=== PATIENT | female | born 1995 | race Caucasian/White ===

== ENCOUNTER 2018-10-02 18:14 | Emergency (ER) | payer BC ==
--- OUTSIDE RECORDS SUMMARY | 2018-10-02 18:18 | XMS REPORT | Continuity of Care Document ---
:1995 Author Organization [facility] Care Team Providers Name Role Phone AYE Hardy Sharrone Unavailable Unavailable Insurance Providers Payer name Policy type / Policy ID Covered democrat ID Policy Aguilar Coverage type CIGNA HMO PRIMARY CIGNA PPO PRIMARY [id number] CIGNA HEALTHCARE (PPO) Encounters Encounter Performer Location Date Lab Report Milka Hardy PA-C [facility] [place] [facility] Oct 15, 2014 Practice Problems Problem Effective Dates Problem Status SCOLIOSIS May 31, 2012 Active HEALTHY ADOLESCENT May 31, 2012 Active KNEE PAIN Jul 06, 2012 Inactive SHOULDER PAIN Jul 06, 2012 Active COSTOCHONDRITIS, ACUTE Jun 27, 2014 Active FATIGUE Jun 27, 2014 Active ANEMIA Jul 12, 2014 Active SCREENING EXAMINATION FOR PULMONARY TUBERCULOSIS Jul 22, 2014 Active NEED FOR PROPHYLACTIC VACCINATION AND INOCULATION Aug 23, 2014 Active AGAINST VARICELLA MIGRAINE Oct 15, 2014 Active Procedures Date Description Comments Jul 06, 2012 smoking status never smoker Jun 27, 2014 smoking status Never smoker Jul 12, 2014 smoking status Never smoker Oct 15, 2014 smoking status Never smoker Medications Medication Instructions Start Date Status IBUPROFEN 800 MG TABS take 1 po TID pc for 5 days Jun 27, 2014 Inactive TOPIRAMATE ER 25 MG CS24 take one a bedtime Jun 27, 2014 Active HYDROCODONE-ACETAMINOPHEN 5-325 take 1 po every 6 hours as Jun 27, 2014 Inactive MG TABS needed Immunizations Vaccine Date Status hepatitis B vaccine #1 given 1995 completed hepatitis B vaccine #2 given 1995 completed hepatitis B vaccine #3 Jul 17, 1996 completed DPT immunization #1 1995 completed DPT immunization #2 1995 completed DPT immunization #3 Jan 05, 1996 completed DPT immunization #4 Dec 27, 1996 completed DPT immunization #5 Apr 21, 2000 completed Hemophilus influenza B immunization #1 1995 completed Hemophilus influenza B immunization #2 1995 completed Hemophilus influenza B immunization #3 1995 completed Hemophilus influenza B immunization #4 Jun 04, 1998 completed oral polio vaccine (OPV) #1 1995 completed oral polio vaccine (OPV) #2 1995 completed oral polio vaccine (OPV) #3 Jan 05, 1996 completed oral polio vaccine (OPV) #4 Oct 22, 1999 completed MMR (measles, mumps, rubella) virus immunization #1 Jan 04, 1997 completed MMR (measles, mumps, rubella) virus immunization #2 Oct 22, 1999 completed dT (Diphtheria and Tetanus) booster given Nov 27, 2009 completed influenza immunization (Flu Vax) has been administered Jun 24, 2010 completed MPSV4 (meningococcal polysaccharide vaccination) Nov 27, 2009 completed hepatitis A immunization #1 Nov 30, 2006 completed hepatitis A immunization #2 Sep 03, 2007 completed TB-PPD (tuberculin purified protein derivative), intradermal May 30, 2012 completed administration Vital Signs Date Description Test Result May 31, 2012 height E&M - 8302-2 HEIGHT 64 in May 31, 2012 weight E&M - 3141-9 WEIGHT 118.2 lb May 31, 2012 temperature E&M TEMPERATURE 97.6 deg f May 31, 2012 pulse rate E&M - 8867-4 PULSE RATE 67 /min May 31, 2012 blood pressure, systolic - 8480-6 BP SYSTOLIC 115 mm Hg May 31, 2012 blood pressure, diastolic - 8462-4 BP DIASTOLIC 65 mm Hg Jul 06, 2012 weight E&M - 3141-9 WEIGHT 126..2 lb Jul 06, 2012 temperature E&M TEMPERATURE 98.2 deg f Jul 06, 2012 respiratory rate E&M - 9279-1 RESP RATE 20 /min Jul 06, 2012 pulse rate E&M - 8867-4 PULSE RATE 80 /min Jul 06, 2012 blood pressure, systolic - 8480-6 BP SYSTOLIC 100 mm Hg Jul 06, 2012 blood pressure, diastolic - 8462-4 BP DIASTOLIC 60 mm Hg Jul 12, 2012 weight E&M - 3141-9 WEIGHT 126.25 lb Jul 12, 2012 temperature E&M TEMPERATURE 97.9 deg f Jul 12, 2012 pulse rate E&M - 8867-4 PULSE RATE 72 /min Jul 12, 2012 blood pressure, systolic - 8480-6 BP SYSTOLIC 110 mm Hg Jul 12, 2012 blood pressure, diastolic - 8462-4 BP DIASTOLIC 68 mm Hg Jul 12, 2012 respiratory rate E&M - 9279-1 RESP RATE 20 /min Aug 21, 2012 weight E&M - 3141-9 WEIGHT 123 lb Aug 21, 2012 temperature E&M TEMPERATURE 98.5 deg f Aug 21, 2012 respiratory rate E&M - 9279-1 RESP RATE 16 /min Aug 21, 2012 blood pressure, systolic - 8480-6 BP SYSTOLIC 116 mm Hg Aug 21, 2012 blood pressure, diastolic - 8462-4 BP DIASTOLIC 66 mm Hg Jun 27, 2014 height E&M - 8302-2 HEIGHT 63 in Jun 27, 2014 weight E&M - 3141-9 WEIGHT 125 lb Jun 27, 2014 blood pressure, systolic - 8480-6 BP SYSTOLIC 110 mm Hg Jun 27, 2014 blood pressure, diastolic - 8462-4 BP DIASTOLIC 70 mm Hg Jun 27, 2014 temperature E&M TEMPERATURE 98.7 deg f Jun 27, 2014 pulse rate E&M - 8867-4 PULSE RATE 78 /min Jul 12, 2014 weight Benny&Viviana - 3141-9 WEIGHT 125 lb Jul 12, 2014 height E&M - 8302-2 HEIGHT 63 in Jul 12, 2014 temperature E&M TEMPERATURE 98.2 deg f Jul 12, 2014 pulse rate E&M - 8867-4 PULSE RATE 80 /min Jul 12, 2014 respiratory rate E&M - 9279-1 RESP RATE 18 /min Jul 12, 2014 blood pressure, systolic - 8480-6 BP SYSTOLIC 112 mm Hg Jul 12, 2014 blood pressure, diastolic - 8462-4 BP DIASTOLIC 68 mm Hg Jul 22, 2014 height E&M - 8302-2 HEIGHT 63 in Jul 22, 2014 weight Benny&Viviana - Madeleine1-9 WEIGHT 124 lb Jul 22, 2014 temperature E&M TEMPERATURE 97.9 deg f Jul 22, 2014 pulse rate E&M - 8867-4 PULSE RATE 68 /min Jul 22, 2014 blood pressure, systolic - 8480-6 BP SYSTOLIC 110 mm Hg Jul 22, 2014 blood pressure, diastolic - 8462-4 BP DIASTOLIC 70 mm Hg Aug 23, 2014 height E&M - 8302-2 HEIGHT 63 in Aug 23, 2014 weight E&M - 3141-9 WEIGHT 122 lb Aug 23, 2014 temperature E&M TEMPERATURE 98.7 deg f Aug 23, 2014 pulse rate E&M - 8867-4 PULSE RATE 74 /min Aug 23, 2014 blood pressure, systolic - 8480-6 BP SYSTOLIC 114 mm Hg Aug 23, 2014 blood pressure, diastolic - 8462-4 BP DIASTOLIC 70 mm Hg Oct 15, 2014 height E&M - 8302-2 HEIGHT 63 in Oct 15, 2014 weight E&M - 3141-9 WEIGHT 134 lb Oct 15, 2014 blood pressure, systolic - 8480-6 BP SYSTOLIC 103 mm Hg Oct 15, 2014 blood pressure, diastolic - 8462-4 BP DIASTOLIC 68 mm Hg Oct 15, 2014 temperature E&M TEMPERATURE 98.2 deg f Oct 15, 2014 pulse rate E&M - 8867-4 PULSE RATE 71 /min Oct 15, 2014 respiratory rate E&M - 9279-1 RESP RATE 10 /min Results Date Description Test Name Value Reference Interpretation Status Jun 27, 2014 hemoglobin, blood HGB 11.7 g/dL 12.0-15.0 Low Jun 27, 2014 hematocrit, blood HCT 33.6 % 35.0-43.8 Low Oct 15, 2014 hemoglobin, blood HGB 13.1 g/dL 12.0-15.0 Oct 15, 2014 hematocrit, blood HCT 38.6 % 35.0-43.8 Jun 27, 2014 thyroid stimulating TSH 2.48 uIU/mL 0.34-5.60 hormone, serum Oct 15, 2014 iron, serum IRON 57 ug/dL 20-144 Oct 15, 2014 iron binding TIBC 419 ug/dL 250-478 capacity, total
--- OUTSIDE RECORDS SUMMARY | 2018-10-02 18:18 | XMS REPORT | Continuity of Care Document ---
:1995 Author Organization [facility] Care Team Providers Name Role Phone AYE Hardy Sharrone Unavailable Unavailable Insurance Providers Payer name Policy type / Policy ID Covered republican ID Policy Aguilar Coverage type CIGNA HMO PRIMARY CIGNA PPO PRIMARY [id number] CIGNA HEALTHCARE (PPO) Encounters Encounter Performer Location Date Lab Report Milka Hardy PA-C [facility] - Jun 27, 2014 [place] Problems Problem Effective Dates Problem Status SCOLIOSIS May 31, 2012 Active HEALTHY ADOLESCENT May 31, 2012 Active KNEE PAIN Jul 06, 2012 Inactive SHOULDER PAIN Jul 06, 2012 Active COSTOCHONDRITIS, ACUTE Jun 27, 2014 Active FATIGUE Jun 27, 2014 Active Procedures Date Description Comments Jul 06, 2012 smoking status never smoker Jun 27, 2014 smoking status Never smoker Medications Medication Instructions Start Date Status HYDROCODONE-ACETAMINOPHEN 5-325 take 1 po every 6 hours as needed Jun 27, 2014 Active MG TABS IBUPROFEN 800 MG TABS take 1 po TID pc for 5 days Jun 27, 2014 Active TOPIRAMATE ER 25 MG CS24 take one a bedtime Jun 27, 2014 Active Immunizations Vaccine Date Status hepatitis B vaccine [...] HEIGHT 64 in May 31, 2012 weight Benny&Viviana - 3141-9 WEIGHT 118.2 lb May 31, 2012 temperature E&M TEMPERATURE 97.6 deg f May 31, 2012 pulse rate E&M - 8867-4 PULSE RATE 67 /min May 31, 2012 blood pressure, systolic - 8480-6 BP SYSTOLIC 115 mm Hg May 31, 2012 blood pressure, diastolic - 8462-4 BP DIASTOLIC 65 mm Hg Jul 06, 2012 weight Benny&Viviana - 3141-9 WEIGHT 126..2 lb Jul 06, [...] 60 mm Hg Jul 12, 2012 weight Benny&Viviana - 3141-9 WEIGHT 126.25 lb Jul 12, [...] RATE 20 /min Aug 21, 2012 weight Benny&Viviana - 3141-9 WEIGHT 123 lb Aug 21, [...] E&M - 8867-4 PULSE RATE 78 /min Results Date Description Test Name Value Reference Interpretation Status Jun 27, 2014 hemoglobin, blood HGB 11.7 g/dL 12.0-15.0 Low Jun 27, 2014 hematocrit, blood HCT 33.6 % 35.0-43.8 Low Jun 27, 2014 thyroid stimulating TSH 2.48 uIU/mL 0.34-5.60 hormone, serum
--- OUTSIDE RECORDS SUMMARY | 2018-10-02 18:18 | XMS REPORT | Continuity of Care Document ---
:1995 Author Organization [facility] Care Team Providers Name Role Phone AYE Hardy Sharrone Unavailable Unavailable Insurance Providers Payer name Policy type / Policy ID Covered libertarian ID Policy Aguilar Coverage type CIGNA HMO PRIMARY CIGNA PPO PRIMARY [id number] CIGNA HEALTHCARE (PPO) Encounters Encounter Performer Location Date Office Visit Milka Hardy PA-C [facility] Jun Practice Problems Problem Effective Dates Problem Status SCOLIOSIS May 31, 2012 Active HEALTHY ADOLESCENT May 31, 2012 Active KNEE PAIN Jul 06, 2012 Inactive SHOULDER PAIN Jul 06, 2012 Active COSTOCHONDRITIS, ACUTE Jun 27, 2014 Active FATIGUE Jun 27, 2014 Active ANEMIA Jul 12, 2014 Active Procedures Date Description Comments Jul 06, 2012 smoking status never smoker Jun 27, 2014 smoking status Never smoker Jul 12, 2014 smoking status Never smoker Medications Medication [...] RATE 78 /min Jul 12, 2014 weight E&M - 3141-9 WEIGHT 125 lb Jul 12, [...] - 8462-4 BP DIASTOLIC 68 mm Hg Results Date Description Test Name Value Reference Interpretation Status Jun 27, 2014 hemoglobin, blood HGB 11.7 g/dL 12.0-15.0 Low Jun 27, 2014 hematocrit, blood HCT 33.6 % 35.0-43.8 Low Jun 27, 2014 thyroid stimulating TSH 2.48 uIU/mL 0.34-5.60 hormone, serum
--- OUTSIDE RECORDS SUMMARY | 2018-10-02 18:18 | XMS REPORT | Summary of Care ---
:1995 Author Organization [facility] Cardiology [facility] Address [address] [address] Encounter HQ Encntr_alias(FIN) [id number] Date(s): 10/25/17 - 10/26/17 [facility] [id number] [place] [address]- [phone] Vital Signs No data available for this section Problem List Condition Effective Dates Status Health Status Informant Anemia1 07/12/14 Active control(Confirmed) < 11/14/15 Resolved Fatigue2 06/27/14 Active Body mass index (BMI) 26.0-26.9, Active adult(Confirmed) Cardiac murmur(Confirmed) Active Migraine3 10/15/14 Active Mild mitral regurgitation(Confirmed) Active Night sweats(Confirmed) Active Overweight(Confirmed) Active Scoliosis deformity of spine4 05/31/12 Active Shoulder pain5 07/06/12 Resolved Insomnia(Confirmed) Active Plantar wart(Confirmed) < 09/24/15 Resolved 1Data migrated from [employer] on 03/15/15.2Data migrated from [employer] on 03/15/15.3Data migrated from [employer] on 03/15/15.4Data migrated from [employer] on 03/15/15.5Data migrated from [employer] on 03/15/15. Allergies, Adverse Reactions, Alerts Substance Reaction Severity Status NKDA Active Medications No data available for this section Results No data available for this section Immunizations Given and Recorded Vaccine Date Status Refusal Reason meningococcal conjugate vaccine1 10/24/14 Given varicella virus vaccine2 08/23/14 Given varicella virus vaccine3 07/22/14 Given Hx influenza vaccine-unspecified4 06/24/10 Given meningococcal polysaccharide vaccine5 11/27/09 Given diphtheria/pertussis, acel/tetanus adult6 11/27/09 Given Hx hepatitis A vaccine7 09/03/07 Given Hx hepatitis A vaccine8 11/30/06 Given Hx diphth/pertussis, acellular/tetanus9 04/21/00 Given Hx diphth/pertussis, acellular/ 12/27/96 Given Hx diphth/pertussis, acellular/ybbshlf15 01/05/96 Given Hx diphth/pertussis, acellular/wtsucig76 95 Given Hx diphth/pertussis, acellular/rvpygcg76 95 Given Hx poliovirus vaccine-onefayztqmp89 10/22/99 Given Hx poliovirus vaccine-owginvknrmv42 01/05/96 Given Hx poliovirus vaccine-dnbezbowngr68 95 Given Hx poliovirus vaccine-zdlignrzpic87 95 Given measles/mumps/rubella virus slbciau32 10/22/99 Given measles/mumps/rubella virus mxzmpap19 01/04/97 Given Hx haemophilus b 06/04/98 Given Hx haemophilus b 95 Given Hx haemophilus b 95 Given Hx haemophilus b ikbcwwt25 95 Given Hx hepatitis B ggwxewa72 07/17/96 Given Hx hepatitis B mqavufj88 95 Given Hx hepatitis B yszooob06 95 Given 1Result Comment: menactra (mcv4p) [phq435]. Migrated from OBS ; Data migrated from [employer] on11/19/2015.2Result Comment: varivax [cvx21]. Migrated from OBS VIS: Varicella: ; Data migrated from [employer] on 2015.3Result Comment: varivax [cvx21]. Migrated from OBS VIS: Varicella: ; Data migrated from [employer] on 11/19/2015.4Result Comment: historical. Migrated from OBS ; Data migrated from [employer] on 2015.5Result Comment: historical. Migrated from OBS ; Data migrated from [employer] on 11/19/2015.6Result Comment: tdap. Migrated from OBS ; Data migrated from [employer] on 11/19/2015.7Result Comment: historical. Migrated from OBS ; Data migrated from [employer] on 11/19/2015.8Result Comment: historical. Migrated from OBS ; Data migrated from [employer] on 2015.9Result Comment: historical. Migrated from OBS ; Data migrated from [employer] on 11/19/2015.10Result Comment: historical. Migrated from OBS ; Data migrated from [employer] on 11/19/2015.11Result Comment: historical. Migrated from OBS ; Data migrated from [employer] on 11/19/2015.12Result Comment: historical. Migrated from OBS ; Data migrated from [employer] on 11/19/2015.13Result Comment: historical. Migrated from OBS ; Data migrated from [employer] on 11/19/2015.14Result Comment: historical. Migrated from OBS ; Data migrated from [employer] on 11/19/2015.15Result Comment: historical. Migrated from OBS ; Data migrated from [employer] on 2015.16Result Comment: historical. Migrated from OBS ; Data migrated from [employer] on 11/19/2015.17Result Comment: historical. Migrated from OBS ; Data migrated from [employer] on 11/19/2015.18Result Comment: historical. Migrated from OBS ; Data migrated from [employer] on 11/19/2015.19Result Comment: historical. Migrated from OBS ; Data migrated from [employer] on 11/19/2015.20Result Comment: historical. Migrated from OBS ; Data migrated from [employer] on 11/19/2015.21Result Comment: historical. Migrated from OBS ; Data migrated from [employer] on 11/19/2015.22Result Comment: historical. Migrated from OBS ; Data migrated from [employer] on 2015.23Result Comment: historical. Migrated from OBS ; Data migrated from [employer] on 11/19/2015.24Result Comment: historical. Migrated from OBS ; Data migrated from [employer] on 11/19/2015.25Result Comment: historical. Migrated from OBS ; Data migrated from [employer] on 11/19/2015.26Result Comment: historical. Migrated from OBS ; Data migrated from [employer] on 11/19/2015. Procedures Procedure Date Related Diagnosis Body Site Status Extraction of wisdom tooth Completed Social History Social History Type Response Employment/School Status: Employed, Student. Work/School description: Student of [employer][1], [place] in [id number], studying human [employer]. 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 Brother is in [place].. Other: Lives with roommates 1 dog, 1 pig.. Smoking Status Never smoker; Exposure to Tobacco Smoke None; Cigarette Smoking Last 365 Days No; Reg Smoking Cessation Counseling No entered on: 10/14/17 Assessment and Plan No data available for this section
--- OUTSIDE RECORDS SUMMARY | 2018-10-02 18:18 | XMS REPORT | Summary of Care ---
:1995 Author Organization [facility] Cardiology [place] Address [address] [place] [address]- Encounter HQ Veronica_awais(FIN) [id number] Date(s): 09/07/17 - 09/07/17 [facility] [place] [address] [place] [address]- [phone] Discharge Disposition: Home or Self Care Attending Physician: Rosa Elena Daigle OPERATIONS CHIEF Vital Signs Most recent to oldest [Reference Range]: 1 Height 160.02 cm (09/07/17 2:57 PM) Blood Pressure [90-140/60-90 mmHg] 105/68 mmHg (09/07/17 2:57 PM) Peripheral Pulse Rate [60-100 bpm] 76 bpm (09/07/17 2:57 PM) Weight 72.045 kg (09/07/17 2:57 PM) Body Mass Index 28.14 m2 (09/07/17 2:57 PM) Problem List Condition Effective Dates Status Health Status Informant Anemia1 07/12/14 Active control(Confirmed) < 11/14/15 Resolved Fatigue2 06/27/14 Active Body mass index (BMI) 26.0-26.9, Active adult(Confirmed) Cardiac murmur(Confirmed) Active Migraine3 10/15/14 Active Mild mitral valve Active prolapse(Confirmed) Mild mitral regurgitation(Confirmed) Active Night sweats(Confirmed) Active Overweight(Confirmed) Active Scoliosis deformity of spine4 05/31/12 Active Shoulder pain5 07/06/12 Resolved Insomnia(Confirmed) Active Plantar wart(Confirmed) < 09/24/15 Resolved 1Data migrated from [employer] on 03/15/15.2Data migrated from [employer] on 03/15/15.3Data migrated from [employer] on 03/15/15.4Data migrated from [employer] on 03/15/15.5Data migrated from [employer] on 03/15/15. Allergies, Adverse Reactions, Alerts Substance Reaction Severity Status NKDA Active Medications No Known Medications Results No data available for this section [...] Hx diphth/pertussis, acellular/tetanus9 04/21/00 Given Hx diphth/pertussis, acellular/ewuybyh06 12/27/96 Given Hx diphth/pertussis, acellular/ 01/05/96 Given Hx diphth/pertussis, acellular/vflecyh26 95 Given Hx diphth/pertussis, acellular/blgomwe03 95 Given Hx poliovirus vaccine-gqmpdjnxnup70 10/22/99 Given Hx poliovirus vaccine- 01/05/96 Given Hx poliovirus vaccine-tdvpeplqcpr33 95 Given Hx poliovirus vaccine-fxaxrtbqobz08 95 Given measles/mumps/rubella virus iuozwwp49 10/22/99 Given measles/mumps/rubella virus ndbdacy76 01/04/97 Given Hx haemophilus b fsguiti26 06/04/98 Given Hx haemophilus b tdameus05 95 Given Hx haemophilus b dqiedmp86 95 Given Hx haemophilus b pdpyiyz41 95 Given Hx hepatitis B rmliaip30 07/17/96 Given Hx hepatitis B guflyhg44 95 Given Hx hepatitis B 95 Given 1Result Comment: menactra (mcv4p) [bhe343]. Migrated from OBS ; Data migrated from [employer] on11/19/2015.2Result Comment: varivax [cvx21]. Migrated from OBS VIS: Varicella: ; Data migrated from [employer] on 2015.3Result Comment: varivax [cvx21]. Migrated from [...] Migrated from OBS ; Data migrated from [email or web address] Centricity on 11/19/2015.24Result Comment: historical. Migrated from OBS ; Data migrated from [email or web address] on 11/19/2015.25Result Comment: historical. Migrated from OBS ; Data migrated from [email or web address] on 11/19/2015.26Result Comment: historical. Migrated from OBS ; Data migrated from [email or web address] on 11/19/2015. Procedures Procedure Date Related Diagnosis Body Site Extraction of wisdom tooth Social History Social History Type Response Employment/School Status: Employed, Student. Work/School description: Student of [employer], [place] in [phone], studying human resources. 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 Brother is in [place].. Other: Lives with roommates 1 dog, 1 pig.. Smoking Status Never smoker; Exposure to Tobacco Smoke None; Cigarette Smoking Last 365 Days No; Reg Smoking Cessation Counseling No Assessment and Plan No data available for this section
--- OUTSIDE RECORDS SUMMARY | 2018-10-02 18:18 | XMS REPORT | Summary of Care ---
:1995 Author Organization [facility] Sleep Medicine [facility] [address] [place] [address]- Encounter HQ Veronica_awais(FIN) [id number] Date(s): 10/06/17 - 10/06/17 [facility] Sleep Medicine [place] [address] [place] [address] [phone] Attending Physician: VISIT, NURSE [facility] Referring Physician: Sosa Galicia RN, MSN, INVESTIGATOR INTERNAL REVENUE-C Vital Signs No data available for this [...] Hx diphth/pertussis, acellular/tetanus9 04/21/00 Given Hx diphth/pertussis, acellular/purvvbm19 12/27/96 Given Hx diphth/pertussis, acellular/goqpsgi05 01/05/96 Given Hx diphth/pertussis, acellular/yrlnulh49 95 Given Hx diphth/pertussis, acellular/bzsddru66 95 Given Hx poliovirus vaccine-soyoxgctraa42 10/22/99 Given Hx poliovirus vaccine-sfszujufqap76 01/05/96 Given Hx poliovirus vaccine-ntboasmgpkc35 95 Given Hx poliovirus vaccine-jrhacxernfi50 95 Given measles/mumps/rubella virus joqhqth74 10/22/99 Given measles/mumps/rubella virus ggeolam04 01/04/97 Given Hx haemophilus b laigbpv05 06/04/98 Given Hx haemophilus b 95 Given Hx haemophilus b eiowifr52 95 Given Hx haemophilus b iluqvgx97 95 Given Hx hepatitis B neuzpqi21 07/17/96 Given Hx hepatitis B ivyaosq34 95 Given Hx hepatitis B tiutufv25 95 Given 1Result Comment: menactra (mcv4p) [rdk207]. Migrated from OBS ; Data migrated from [employer] ([email or web address]city on11/19/2015.2Result Comment: varivax [cvx21]. Migrated from OBS [...] Centricity on 11/19/2015.26Result Comment: historical. Migrated from [facility] ; Data migrated from [employer] on 11/19/2015. Procedures Procedure Date Related Diagnosis Body Site Extraction of wisdom tooth Social History Social History Type Response Employment/School Status: Employed, Student. Work/School description: Student of [employer], [place] [phone], studying human [employer]. Also working as a [employer] full-time, for a one-year old child, family is in [place]. Brother is in [place].. Other: Lives with roommates 1 dog, 1 pig.. Smoking Status Never smoker; Exposure to Tobacco Smoke None; Cigarette Smoking Last 365 Days No; Reg Smoking Cessation Counseling No Assessment and Plan No data available for this section
--- OUTSIDE RECORDS SUMMARY | 2018-10-02 18:18 | XMS REPORT | Continuity of Care Document ---
:1995 Author Organization Interface Problems Problem Status Onset Classification Date Comments Source Date Reported control Resolved 11/14/19 Problem 04/10/2018 [facility] Plantar wart Resolved 09/24/20 Problem 04/10/2018 [facility] MIGRAINE Active 10/15/20 Condition 10/15/2014 14 [facility] Migraine<sup>3</ Active 10/15/20 Problem 04/10/2018 Data migrated MH sup> 14 from [facility] Group 03/15/15. NEED FOR Active 08/23/20 Condition 10/15/2014 PROPHYLACTIC 14 Medical VACCINATION AND Group INOCULATION AGAINST VARICELLA SCREENING Active 07/22/20 Condition 10/15/2014 EXAMINATION FOR 14 Medical PULMONARY Group TUBERCULOSIS ANEMIA Active 07/12/20 Condition 10/15/2014 14 [facility] Anemia<sup>1</martino Active 07/12/20 Problem 04/10/2018 Data migrated MH p> 14 from [facility] Group 03/15/15. COSTOCHONDRITIS, Active 06/27/20 Condition 10/15/2014 ACUTE 14 [facility] Group FATIGUE Active 06/27/20 Condition 10/15/2014 14 [facility] Fatigue<sup>2</s Active 06/27/20 Problem 04/10/2018 Data migrated MH up> 14 from [facility] Group 03/15/15. KNEE PAIN Inactive 07/06/20 Condition 10/15/2014 12 [facility] SHOULDER PAIN Active 07/06/20 Condition 10/15/2014 12 [facility] Shoulder Resolved 07/06/20 Problem 04/10/2018 Data migrated pain<sup>5</sup> 12 from [facility] Group 03/15/15. SCOLIOSIS Active 05/31/20 Condition 10/15/2014 12 [facility] HEALTHY Active 05/31/20 Condition 10/15/2014 ADOLESCENT 12 Medical Group Scoliosis Active 05/31/20 Problem 04/10/2018 Data migrated MH deformity of 12 from [facility]sup[facility]</[facility] on Group > 03/15/15. Body mass index Active Problem 04/10/2018 26.0-26.9, Medical adult(<span Group ID="[id number] ">Confirmed</spa n>) Cardiac murmur Active Problem 04/10/2018 Medical Group Mild mitral Active Problem 04/10/2018 regurgitation Medical Group Night sweats Active Problem 04/10/2018 Medical Group Overweight Active Problem 04/10/2018 Medical Group Insomnia Active Problem 04/10/2018 Medical Group Mild mitral Active Problem 10/09/2017 valve prolapse Medical Group Family history Active Problem 04/10/2018 of high Medical cholesterol Group Medications Medication Details Route Status Patient Ordering Order Source Instructions Provider Date Aspirin prn pain, No Longer 12/12/19 Medical 0 Active 18 Group Refill(s) Vitamin B12 0 Active 10/14/20 Medical Refill(s) 17 Group IBUPROFEN 800 take 1 po No Longer 06/27/20 Medical MG TABS TID pc for Active 14 Group 5 days TOPIRAMATE ER take one a Active 06/27/20 Medical 25 MG CS24 bedtime 14 Group HYDROCODONE-AC take 1 po No Longer 06/27/20 Medical ETAMINOPHEN every 6 Active 14 Group 5-325 MG TABS hours as needed IBUPROFEN 800 take 1 po No Longer 06/27/20 Medical MG TABS TID pc for Active 14 Group 5 days HYDROCODONE-AC take 1 po No Longer 06/27/20 Medical ETAMINOPHEN every 6 Active 14 Group 5-325 MG TABS hours as needed Allergies, Adverse Reactions, Alerts Substance Category Reaction Severity Reaction Status Date Comments Source type Reported Immunizations Immunization Date Site Status Last Comments Source Given Updated meningococcal Left completed GE Result Medical conjugate 5 [facility]to[facility] Comment: Group vaccine<sup>1</sup menactra > (mcv4p) [[id number]]. Migrated from OBS ; Data migrated from [employer] on 11/19/2015. varicella virus Left completed GE Result Medical vaccine<sup>2</sup 4 Deltoid Comment: Group > varivax [cvx21]. Migrated from OBS VIS: Varicella: ; Data migrated from [employer] on 11/19/2015. varicella virus Left completed GE Result Medical vaccine<sup>3</sup 4 Deltoid Comment: Group > varivax [cvx21]. Migrated from OBS VIS: Varicella: ; Data migrated from [employer] on 11/19/2015. TB-PPD (tuberculin completed Medical purified protein 2 Group derivative), intradermal administration influenza completed Medical immunization (Flu 0 Group Vax) has been administered Hx influenza completed GE Result Medical vaccine-unspecifie 0 Comment: Group d<sup>4</sup> historical. Migrated from OBS ; Data migrated from [employer] on 11/19/2015. dT (Diphtheria and completed Medical Tetanus) booster 0 Group given MPSV4 completed Medical (meningococcal 0 Group polysaccharide vaccination) meningococcal completed GE Result Medical polysaccharide 0 Comment: Group vaccine<sup>5</sup historical. > Migrated from OBS ; Data migrated from [employer] on 11/19/2015. diphtheria/pertuss completed GE Result Medical is, acel/tetanus 0 Comment: Group adult<sup>6</sup> tdap. Migrated from OBS ; Data migrated from [employer] on 11/19/2015. hepatitis A completed Medical immunization #2 7 Group Hx hepatitis A completed GE Result Medical vaccine<sup>7</sup 7 Comment: Group > historical. Migrated from OBS ; Data migrated from [employer] on 11/19/2015. hepatitis A completed Medical immunization #1 7 Group Hx hepatitis A completed GE Result Medical vaccine<sup>8</sup 7 Comment: Group > historical. Migrated from OBS ; Data migrated from [employer] on 11/19/2015. DPT immunization completed Medical #5 0 Group Hx completed GE Result Medical diphth/pertussis, 0 Comment: Group acellular/tetanus< historical. sup>9</sup> Migrated from OBS ; Data migrated from [employer] on 11/19/2015. oral polio vaccine completed Medical (OPV) #4 0 Group MMR (measles, completed Medical mumps, rubella) 0 Group virus immunization #2 Hx poliovirus completed GE Result Medical vaccine-unspecifie 0 Comment: Group d<sup>14</sup> historical. Migrated from OBS ; Data migrated from [employer] on 11/19/2015. measles/mumps/rube completed GE Result Medical lla virus 0 Comment: Group vaccine<sup>18</martino historical. p> Migrated from OBS ; Data migrated from [employer] on 11/19/2015. Hemophilus completed Medical influenza B 8 Group immunization #4 Hx haemophilus b completed GE Result Medical vaccine<sup>20</martino 8 Comment: Group p> historical. Migrated from OBS ; Data migrated from [employer] on 11/19/2015. MMR (measles, completed Medical mumps, rubella) 7 Group virus immunization #1 measles/mumps/rube completed GE Result Medical lla virus 7 Comment: Group vaccine<sup>19</martino historical. p> Migrated from OBS ; Data migrated from [employer] on 11/19/2015. DPT immunization completed Medical #4 7 Group Hx completed GE Result Medical diphth/pertussis, 7 Comment: Group acellular/tetanus< historical. sup>10</sup> Migrated from OBS ; Data migrated from [employer] on 11/19/2015. hepatitis B completed Medical vaccine #3 6 Group Hx hepatitis B completed GE Result Medical vaccine<sup>24</martino 6 Comment: Group p> historical. Migrated from OBS ; Data migrated from [employer] on 11/19/2015. DPT immunization completed Medical #3 6 Group oral polio vaccine completed Medical (OPV) #3 6 Group Hx poliovirus completed GE Result Medical vaccine-unspecifie 6 Comment: Group d<sup>15</sup> historical. Migrated from OBS ; Data migrated from [employer] on 11/19/2015. Hx completed GE Result Medical diphth/pertussis, 6 Comment: Group acellular/tetanus< historical. sup>11</sup> Migrated from OBS ; Data migrated from [employer] on 11/19/2015. Hemophilus completed Medical influenza B 6 Group immunization #3 Hx haemophilus b completed GE Result Medical vaccine<sup>21</martino 6 Comment: Group p> historical. Migrated from OBS ; Data migrated from [employer] on 11/19/2015. DPT immunization completed Medical #2 6 Group Hemophilus completed Medical influenza B 6 Group immunization #2 oral polio vaccine completed Medical (OPV) #2 6 Group Hx poliovirus completed GE Result Medical vaccine-unspecifie 6 Comment: Group d<sup>16</sup> historical. Migrated from OBS ; Data migrated from [employer] on 11/19/2015. Hx haemophilus b completed GE Result Medical vaccine<sup>22</martino 6 Comment: Group p> historical. Migrated from OBS ; Data migrated from [employer] on 11/19/2015. Hx completed GE Result Medical diphth/pertussis, 6 Comment: Group acellular/tetanus< historical. sup>12</sup> Migrated from OBS ; Data migrated from [employer] on 11/19/2015. DPT immunization completed Medical #1 5 Group Hemophilus completed Medical influenza B 5 Group immunization #1 oral polio vaccine completed Medical (OPV) #1 5 Group Hx poliovirus completed GE Result Medical vaccine-unspecifie 5 Comment: Group d<sup>17</sup> historical. Migrated from OBS ; Data migrated from [employer] on 11/19/2015. Hx haemophilus b completed GE Result Medical vaccine<sup>23</martino 5 Comment: Group p> historical. Migrated from OBS ; Data migrated from [employer] on 11/19/2015. Hx completed GE Result Medical diphth/pertussis, 5 Comment: Group acellular/tetanus< historical. sup>13</sup> Migrated from OBS ; Data migrated from [employer] on 11/19/2015. hepatitis B completed Medical vaccine #2 given 5 Group Hx hepatitis B completed GE Result Medical vaccine<sup>25</martino 5 Comment: Group p> historical. Migrated from OBS ; Data migrated from [employer] on 11/19/2015. hepatitis B completed Medical vaccine #1 given 5 Group Hx hepatitis B completed GE Result Medical vaccine<sup>26</martino 5 Comment: Group p> historical. Migrated from OBS ; Data migrated from [employer] on 11/19/2015. Results Order Name Results Value Reference Date Interpretation Comments Source Range Foot series Foot History: Foot pain 09/24 - [facility] DX series DX - Jaden Comparison: None Read by: Vijay Blanton MD Dictated Date/time: 09/24/15 13:34 Electronically Signed by: Vijay Blanton MD 09/24/15 13:59 FINAL REPORT Findings: The visualized bony structures are unremarkable. Impression: 1. Unremarkable right foot x-rays. Calcaneus Calcaneus EXAM: 08/18 - [facility] DX series - Jaden 2 view(s) of the right calcaneus. Read by: Jose Harris MD Dictated Date/time: 08/18/15 15:28 INDICATION: Electronically Signed by: Jose Harris MD 08/18/15 15:29 FINAL REPORT Heel pain. COMPARISON: None. FINDINGS: No acute fracture or dislocation. No large soft tissue swelling. IMPRESSION: 1. No acute fracture. Chemistry IRON 57 ug/dL 20 - 144 10/15 Medical Group Chemistry TIBC 419 ug/dL 250 - 478 10/15 Medical Group Hematology HGB 13.1 g/dL 12.0 - 10/15 MH 15. Medical Group Hematology HCT 38.6 % 35.0 - 10/15 MH 43.8 /2013 Medical Group Chemistry TSH 2.48 uIU/mL 0.34 - 06/27 MH 5. Medical Group Chemistry TSH 2.48 uIU/mL 0.34 - 06/27 5.60 Medical Group Hematology HGB 11.7 g/dL 12.0 - 06/27 MH 15.0 Medical Group Hematology HCT 33.6 % 35.0 - 09 43.8 /2014 Medical Group Vital Signs Vital Sign Value Date Comments Source Weight 71.364 01/02/2018 Medical Group Heart Rate 80 01/02/2018 Medical Group Temperature Oral (F) 98.3 F 01/02/2018 Medical Group Systolic (mm Hg) 117 01/02/2018 Medical Group Diastolic (mm Hg) 71 01/02/2018 Medical Group Weight 68.864 12/12/2017 Medical Group Temperature Oral (F) 98.1 F 12/12/2017 Medical Group Heart Rate 68 12/12/2017 Medical Group Systolic (mm Hg) 100 12/12/2017 Medical Group Diastolic (mm Hg) 65 12/12/2017 Medical Group BMI Calculated 28.47 10/14/2017 Medical Group Weight 72.898 10/14/2017 Medical Group Height 160.02 cm 10/14/2017 Medical Group Heart Rate 83 10/14/2017 Medical Group Systolic (mm Hg) 121 10/14/2017 Medical Group Diastolic (mm Hg) 75 10/14/2017 Medical Group Height 160.02 cm 09/07/2017 Medical Group Weight 72.045 09/07/2017 Medical Group BMI Calculated 28.14 09/07/2017 Medical Group Heart Rate 76 09/07/2017 Medical Group Systolic (mm Hg) 105 09/07/2017 Medical Group Diastolic (mm Hg) 68 09/07/2017 Medical Group Height 63 10/15/2014 Medical Group Weight 134 10/15/2014 Medical Group Systolic (mm Hg) 103 10/15/2014 Medical Group Diastolic (mm Hg) 68 10/15/2014 Medical Group Temperature Oral (F) 98.2 F 10/15/2014 Medical Group Heart Rate 71 10/15/2014 Medical Group Respitory Rate 10 10/15/2014 Medical Group Height 63 08/23/2014 Medical Group Weight 122 08/23/2014 Medical Group Temperature Oral (F) 98.7 F 08/23/2014 Medical Group Heart Rate 74 08/23/2014 Medical Group Systolic (mm Hg) 114 08/23/2014 Medical Group Diastolic (mm Hg) 70 08/23/2014 Medical Group Height 63 07/22/2014 Medical Group Weight 124 07/22/2014 Medical Group Temperature Oral (F) 97.9 F 07/22/2014 Medical Group Heart Rate 68 07/22/2014 [facility] Medical Group Systolic (mm Hg) 110 07/22/2014 [facility] Medical Group Diastolic (mm Hg) 70 07/22/2014 [facility] Medical Group Weight 125 07/12/2014 Medical Group Height 63 07/12/2014 Medical Group Temperature Oral (F) 98.2 F 07/12/2014 Medical Group Heart Rate 80 07/12/2014 Medical Group Respitory Rate 18 07/12/2014 [facility] Group Systolic (mm Hg) 112 07/12/2014 [facility] Group Diastolic (mm Hg) 68 07/12/2014 Medical Group Height 63 06/27/2014 Medical Group Weight 125 06/27/2014 [facility] Group Systolic (mm Hg) 110 06/27/2014 [facility] Group Diastolic (mm Hg) 70 06/27/2014 Medical Group Temperature Oral (F) 98.7 F 06/27/2014 Medical Group Heart Rate 78 06/27/2014 Medical Group Weight 123 08/21/2012 Medical Group Temperature Oral (F) 98.5 F 08/21/2012 Medical Group Respitory Rate 16 08/21/2012 Medical Group Systolic (mm Hg) 116 08/21/2012 [facility] Group Diastolic (mm Hg) 66 08/21/2012 Medical Group Weight 126.25 07/12/2012 Medical Group Temperature Oral (F) 97.9 F 07/12/2012 Medical Group Heart Rate 72 07/12/2012 Medical Group Systolic (mm Hg) 110 07/12/2012 Medical Group Diastolic (mm Hg) 68 07/12/2012 Medical Group Respitory Rate 20 07/12/2012 Medical Group Weight 126..2 07/06/2012 Medical Group Temperature Oral (F) 98.2 F 07/06/2012 Medical Group Respitory Rate 20 07/06/2012 Medical Group Heart Rate 80 07/06/2012 Medical Group Systolic (mm Hg) 100 07/06/2012 Medical Group Diastolic (mm Hg) 60 07/06/2012 Medical Group Height 64 05/31/2012 Medical Group Weight 118.2 05/31/2012 Medical Group Temperature Oral (F) 97.6 F 05/31/2012 Medical Group Heart Rate 67 05/31/2012 Medical Group Systolic (mm Hg) 115 05/31/2012 Medical Group Diastolic (mm Hg) 65 05/31/2012 Medical Group Encounters Location Location Encounter Encounter Reason Attending ADM DC Status Source Details Type Number For Provider Date Date Visit [facility] Lab Report [id number] Sharronnadine 06/27 06/27 [place] [address] AYE [facility] Office [id number] Milka 07/12 07/12 [place] Medical Visit [id number] AYE Hardy [facility] Lab Report [id number] Milka 10/15 10/15 [place] Medical [address] AYE Hardy [facility] Outpatient [id number] ZOE 07/08 [facility] 0 S[facility]ALL [facility] Outpatient [id number] XRAY VISIT 08/18 Active [facility] Outpatient [id number] XRAY VISIT 08/18 Active [facility] Outpatient [id number] XRAY VISIT 09/24 Active [facility] Outpatient [id number] SOLITARIO 09/24 Active [facility] 5 KRYNSK [facility] Outpatient [id number] SOLITARIO 10/08 Active [facility] 7 KRYNSK [facility] Outpatient [id number] SOLITARIO 11/04 Active [facility] 8 KRYNSK [place] Outpatient [id number] ZOE 11/14 Active [facility] 9 SANGALL [facility] Outpatient [id number] ZOE 02/16 Active [facility] 0 SANGALL [facility] Outpatient [id number] ZOE 02/16 Active [facility] 1 SANGALLI [facility] Outpatient [id number] CHRISRONE 03/16 Active [facility] 2 MARYLIN [facility] Outpatient [id number] BIJU 10/28 Active [facility] 3 TOVA [place] Outpatient [id number] BIJU 01/11 Active [facility] 4 TOVA [facility] Outpatient [id number] CHELLENYSIA 01/28 Active [facility] 5 MAJO [facility] Outpatient [id number] CANDACE HUTCHINSON 07/27 Active [facility] Outpatient [id number] [place] 08/09 Active [facility] 7 GALICIA [place] Outpatient [id number] DOYLE 08/15 Active [facility] 9 VISIT [place] Outpatient [id number] 08/15 Active [facility] 8 VISIT [place] Outpatient [id number] summer Active [facility] 1 [facility] Outpatient [id number] summer Cardiology 1 Medical [facility] Outpatient [id number] NURSE VISIT 09/12 Active [facility] [place] Outpatient [id number] SLEEP LAB 10/06 Active [facility] Sleep Ambulatory [id number] 10/06 Medicine Pre-Reg 0 [place] /2016 Medical [facility] Outpatient [id number] summer Active [facility] 3 [facility] Outpatient [id number] summer Cardiology 3 Medical [place] [facility] Outside [id number] 10/25 10/27 Cardiology Medical Medical [place] [facility] Outpatient [id number] TITO 12/12 Active [facility] 4 [facility] Family Outpatient [id number] Tito 12/12 12/13 Medicine 4 [facility] [place] [facility] Outpatient [id number] TITO 01/02 Active [facility] 5 [facility] Family Outpatient [id number] Tito 01/02 01/03 Medicine 5 [facility] [place] [facility] Outpatient [id number] TITO08/02 Active [facility] 7 [facility] Outpatient [id number] TITO 08/10 Active [facility] 8 [place] Outpatient [id number] CELSA JOSE 10/05 Active [facility] [place] Outpatient [id number] TITO 01/08 Active [facility] 6 [place] Procedures Procedure Code Date Perfomer Comments Source Extraction of [id number] Medical wisdom tooth Group
--- OUTSIDE RECORDS SUMMARY | 2018-10-02 18:19 | XMS REPORT | Summary of Care ---
:1995 Author Organization [facility] Address [address] [place] [address]- Encounter [employer](FIN) [id number] Date(s): 12/12/17 - 12/12/17 [facility] [address] [place] [address]- [phone] Discharge Disposition: Home or Self Care Attending Physician: Kathleen Ortiz DO Vital Signs Most recent to oldest [Reference Range]: 1 Temperature Oral [96.4-99.1 DegF] 98.1 DegF (12/12/17 1:02 PM) Blood Pressure [90-140/60-90 mmHg] 100/65 mmHg (12/12/17 1:02 PM) Peripheral Pulse Rate [60-100 bpm] 68 bpm (12/12/17 1:02 PM) Weight 68.864 kg (12/12/17 1:02 PM) Problem List Condition Effective Dates Status Health Status Informant Anemia1 07/12/14 Active control(Confirmed) < 11/14/15 Resolved Fatigue2 06/27/14 Active Family history of high Active cholesterol(Confirmed) Body mass index (BMI) 26.0-26.9, Active adult(Confirmed) Cardiac murmur(Confirmed) Active Migraine3 10/15/14 Active Mild mitral regurgitation(Confirmed) Active Night sweats(Confirmed) Active Overweight(Confirmed) Active Scoliosis deformity of spine4 05/31/12 Active Shoulder pain5 07/06/12 Resolved Insomnia(Confirmed) Active Plantar wart(Confirmed) < 09/24/15 Resolved 1Data migrated from [employer] on 03/15/15.2Data migrated from [employer] on 03/15/15.3Data migrated from [employer] on 03/15/15.4Data migrated from [employer] on 03/15/15.5Data migrated from [employer] on 03/15/15. Allergies, Adverse Reactions, Alerts Substance Reaction Severity Status NKDA Active Medications aspirin prn pain, 0 Refill(s) Start Date: 12/12/17 Stop Date: 01/02/18 Status: Discontinued Results No data available for this section [...] Hx diphth/pertussis, acellular/tetanus9 04/21/00 Given Hx diphth/pertussis, acellular/kcmtnku94 12/27/96 Given Hx diphth/pertussis, acellular/xgdcyat59 01/05/96 Given Hx diphth/pertussis, acellular/ 95 Given Hx diphth/pertussis, acellular/uqexrpr24 95 Given Hx poliovirus vaccine-ptdprmcfuiq73 10/22/99 Given Hx poliovirus vaccine-vwobsvpihoy49 01/05/96 Given Hx poliovirus vaccine-ntnmuxokxzg91 95 Given Hx poliovirus vaccine-fpidrmixpsz72 95 Given measles/mumps/rubella virus ciugxyr67 10/22/99 Given measles/mumps/rubella virus oxpriiz58 01/04/97 Given Hx haemophilus b ragmlzc74 06/04/98 Given Hx haemophilus b ennlhqf26 95 Given Hx haemophilus b fjejumk94 95 Given Hx haemophilus b kdxirpg24 95 Given Hx hepatitis B oepoykf73 07/17/96 Given Hx hepatitis B 95 Given Hx hepatitis B hisdpve04 95 Given 1Result Comment: menactra (mcv4p) [[id number]]. Migrated from OBS ; Data migrated from [employer] on11/19/2015.2Result Comment: varivax [cvx21]. Migrated from OBS [...] Status: Employed, Student. Work/School description: Student of [employer], [place] [phone], studying human resources. 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 Brother is in [place].. Other: Lives with roommates 1 dog, 1 pig.. Smoking Status Never smoker; Exposure to Tobacco Smoke None; Cigarette Smoking Last 365 Days No; Reg Smoking Cessation Counseling No entered on: 01/02/18 Assessment and Plan No data available for this section
--- OUTSIDE RECORDS SUMMARY | 2018-10-02 18:19 | XMS REPORT | Summary of Care ---
:1995 Author Organization [facility] Cardiology [facility] Address [address] [address] Encounter HQ [employer](FIN) [id number] Date(s): 10/14/17 - 10/14/17 [facility] [address] [place] [address]- [phone] Discharge Disposition: Home or Self Care Attending Physician: Rosa Elena Daigle [employer]ER Vital Signs Most recent to oldest [Reference Range]: 1 Height 160.02 cm (10/14/17 11:48 AM) Blood Pressure [90-140/60-90 mmHg] 121/75 mmHg (10/14/17 11:48 AM) Peripheral Pulse Rate [60-100 bpm] 83 bpm (10/14/17 11:48 AM) Weight 72.898 kg (10/14/17 11:48 AM) Body Mass Index 28.47 m2 (10/14/17 11:48 AM) Problem List Condition Effective Dates Status Health [...] from [employer] on 03/15/15.4Data migrated from [employer] on 03/15/15.5Data migrated from [employer] on 03/15/15. Allergies, Adverse Reactions, Alerts Substance Reaction Severity Status NKDA Active Medications Vitamin B12 0 Refill(s) Start Date: 10/14/17 Status: Ordered Results No data available for this section [...] Hx diphth/pertussis, acellular/ 12/27/96 Given Hx diphth/pertussis, acellular/ 01/05/96 Given Hx diphth/pertussis, acellular/aaxbcub34 95 Given Hx diphth/pertussis, acellular/naugzfr69 95 Given Hx poliovirus vaccine- 10/22/99 Given Hx poliovirus vaccine-yeeybajfvcq69 01/05/96 Given Hx poliovirus vaccine-sxvtmfibpep11 95 Given Hx poliovirus vaccine-etvwyslhvdk33 95 Given measles/mumps/rubella virus xxckdjo82 10/22/99 Given measles/mumps/rubella virus yxntccj56 01/04/97 Given Hx haemophilus b bijhfqq76 06/04/98 Given Hx haemophilus b naeljpv30 95 Given Hx haemophilus b zydiffw80 95 Given Hx haemophilus b hjefjvr38 95 Given Hx hepatitis B xdrdkma29 07/17/96 Given Hx hepatitis B dbkfqce52 95 Given Hx hepatitis B yiiieyo19 95 Given 1Result Comment: menactra (mcv4p) [[id number]]. Migrated from OBS ; Data migrated from [employer] on11/19/2015.2Result Comment: varivax [cvx21]. Migrated from OBS [...] Status: Employed, Student. Work/School description: Student of [employer], [place] in [phone], studying human resources. 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 Brother is in [place].. Other: Lives with roommates 1 dog, 1 pig.. Smoking Status Never smoker; Exposure to Tobacco Smoke None; Cigarette Smoking Last 365 Days No; Reg Smoking Cessation Counseling No Assessment and Plan No data available for this section
--- OUTSIDE RECORDS SUMMARY | 2018-10-02 18:19 | XMS REPORT | Summary of Care ---
:1995 Author Organization [facility] [place] [facility] [place] [address] [address] Encounter HQ [employer](FIN) [id number] Date(s): 10/25/17 - 10/26/17 [facility] [address] [address]- [phone] Vital Signs No data available for this [...] Hx diphth/pertussis, acellular/tetanus9 04/21/00 Given Hx diphth/pertussis, acellular/ixsrdpk90 12/27/96 Given Hx diphth/pertussis, acellular/ilfyfog00 01/05/96 Given Hx diphth/pertussis, acellular/asrdlxg92 95 Given Hx diphth/pertussis, acellular/prqoodu54 95 Given Hx poliovirus vaccine-laqukwbkaad42 10/22/99 Given Hx poliovirus vaccine-vadclcgrapc87 01/05/96 Given Hx poliovirus vaccine-xlreqxwhyko00 95 Given Hx poliovirus vaccine-mvzxoacqknp31 95 Given measles/mumps/rubella virus oqstkfl03 10/22/99 Given measles/mumps/rubella virus 01/04/97 Given Hx haemophilus b qnlimcn83 06/04/98 Given Hx haemophilus b 95 Given Hx haemophilus b wzyznbw12 95 Given Hx haemophilus b ophtlrw62 95 Given Hx hepatitis B 07/17/96 Given Hx hepatitis B iarqlhm07 95 Given Hx hepatitis B zscmkuj39 95 Given 1Result Comment: menactra (mcv4p) [exx008]. Migrated from OBS ; Data migrated from [employer] on11/19/2015.2Result Comment: varivax [cvx21]. Migrated from OBS VIS: Varicella: ; Data migrated from [employer] on 2015.3Result Comment: varivax [cvx21]. Migrated from OBS VIS: Varicella: ; Data migrated from [employer] on 11/19/2015.4Result Comment: historical. Migrated from OBS ; Data migrated from [employer] on 2015.5Result Comment: historical. Migrated from OBS ; Data migrated from [employer] on 11/19/2015.6Result Comment: tdap. Migrated from OBS [...] Migrated from OBS ; Data migrated from [employer] on 11/19/2015. Procedures Procedure Date Related Diagnosis Body Site Status Extraction of wisdom tooth Completed Social History Social History Type Response Employment/School Status: Employed, Student. Work/School description: Student of [employer], [place] [id number], studying human [employer]. 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 Brother is in [place].. Other: Lives with roommates 1 dog, 1 pig.. Smoking Status Never smoker; Exposure to Tobacco Smoke None; Cigarette Smoking Last 365 Days No; Reg Smoking Cessation Counseling No entered on: 01/02/18 Assessment and Plan No data available for this section
--- OUTSIDE RECORDS SUMMARY | 2018-10-02 18:19 | XMS REPORT | Summary of Care ---
:1995 Author Organization [facility] Address [address] [place] [address]- Encounter HQ [employer](FIN) [id number] Date(s): 01/02/18 - 01/02/18 [facility] [address] [place] [address] [phone] Discharge Disposition: Home or Self Care Attending Physician: Kathleen Ortiz DO Vital Signs Most recent to oldest [Reference Range]: 1 Temperature Oral [96.4-99.1 DegF] 98.3 DegF (01/02/18 8:30 AM) Blood Pressure [90-140/60-90 mmHg] 117/71 mmHg (01/02/18 8:30 AM) Peripheral Pulse Rate [60-100 bpm] 80 bpm (01/02/18 8:30 AM) Weight 71.364 kg (01/02/18 8:30 AM) Problem List Condition Effective Dates Status [...] from [employer] on 03/15/15.4Data migrated from [email or web address] on 03/15/15.5Data migrated from [employer] on 03/15/15. Allergies, Adverse Reactions, Alerts Substance [...] Hx diphth/pertussis, acellular/tetanus9 04/21/00 Given Hx diphth/pertussis, acellular/dzsycvq08 12/27/96 Given Hx diphth/pertussis, acellular/mjtecqa38 01/05/96 Given Hx diphth/pertussis, acellular/ 95 Given Hx diphth/pertussis, acellular/mtgwpbo63 95 Given Hx poliovirus vaccine-ojauqdqnsjc97 10/22/99 Given Hx poliovirus vaccine-dzxqweaemhe94 01/05/96 Given Hx poliovirus vaccine-whdyeriixox72 95 Given Hx poliovirus vaccine-iwbdnftfcxm70 95 Given measles/mumps/rubella virus 10/22/99 Given measles/mumps/rubella virus 01/04/97 Given Hx haemophilus b ovxhwoe79 06/04/98 Given Hx haemophilus b ifhhzim48 95 Given Hx haemophilus b fdlatyj21 95 Given Hx haemophilus b eudbzuu24 95 Given Hx hepatitis B agknutw36 07/17/96 Given Hx hepatitis B mecrqhr40 95 Given Hx hepatitis B keuwwpz84 95 Given 1Result Comment: menactra (mcv4p) [van643]. Migrated from OBS ; Data migrated from [email or web address] on11/19/2015.2Result Comment: varivax [cvx21]. Migrated from OBS VIS: Varicella: ; Data migrated from [employer] on 2015.3Result Comment: varivax [cvx21]. Migrated from [...] Status: Employed, Student. 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 Brother is in [place].. Other: Lives with roommates 1 dog, 1 pig.. Smoking Status Never smoker; Exposure to Tobacco Smoke None; Cigarette Smoking Last 365 Days No; Reg Smoking Cessation Counseling No entered on: 01/02/18 Assessment and Plan No data available for this section
[2018-10-02 18:52] LABS: Absolute Lymphocytes (CBC) 2.7 K/uL (0.7-4.9); Absolute Monocytes 0.5 K/uL (0.1-1.3); Absolute Neutrophil 2.9 K/uL (1.8-8.0); Basophils % 0.3 % (0-1.3); Eosinophils % 0.8 % (0-4.4); Hematocrit 39.5 % (36.0-45.0); Lymphocytes % 44.5 % (15.3-44.8); MCH 30.4 pg (27.0-35.0); MCV 89.2 fL (80-100); MPV 8.2 fL (7.6-11.3); Monocytes % 7.8 % (3.3-12.3); RBC Red Blood Cell Count 4.43 M/uL (3.86-4.86)
[2018-10-02] MEDS ORDERED: ALTEPLASE 0 ML IV ONE (19:01)
[2018-10-02 19:07] LABS: Potassium 3.4 mmol/L (3.5-5.1)
--- NOTE | 2018-10-02 19:10 | RAD REPORT ---
EXAM DESCRIPTION: CT - Head Brain Wo Cont - 10/02/2018 6:38 pm CLINICAL HISTORY: Left-sided weakness, numbness COMPARISON: None. TECHNIQUE: Axial 5 mm thick images of the head were obtained without IV contrast. All CT scans are performed using dose optimization technique as appropriate and may include automated exposure control or mA/KV adjustment according to patient size. FINDINGS: No intracranial hemorrhage, mass, edema or shift of mid-line structures. No acute infarcti on changes seen. No abnormal extra-axial fluid collections. Ventricles are normal. Patient has a norm al variant frances cisterna magna. Mastoid air cells and visualized portions of the paranasal sinuses are clear. No acute bony findings. Findings were telephoned to the referring clinician 1838 hours. Final dictation was delayed as the im ages were available only in the exception folder. IMPRESSION: Negative non-contrast CT head examination.
--- NOTE | 2018-10-02 19:13 | RAD REPORT ---
EXAM DESCRIPTION: CT - Angio Aorta For Dissection - 10/02/2018 7:04 pm CLINICAL HISTORY: Chest pain, abdominal pain COMPARISON: None. TECHNIQUE: Dynamically enhanced 3 mm thick images of the chest, abdomen, and upper pelvis were obtai montrell during administration of approximately 150mL Isovue 370 IV contrast. Sagittal and coronal reconst ruction images were generated using MIP and reviewed. Exam utilizes a protocol to evaluate entire cou rse of the aorta. All CT scans are performed using dose optimization technique as appropriate and may include automated exposure control or mA/KV adjustment according to patient size. FINDINGS: Aorta is normal in diameter with no dissection or other acute aortic findings. Reconstruct ion images show no significant findings. Pulmonary arteries are normal as well. No cardiomegaly, pericardial thickening or pericardial effusio n. No mass or infiltrate in the lung parenchyma. No pleural thickening, pleural effusion or pneumothorax . No abnormal mediastinal or hilar mass or lymphadenopathy seen. No chest wall mass or abnormal axillar y lymphadenopathy. Celiac, SMA and renal arteries show no suspicious findings. Solid abdominal viscera and bowel show no significant findings. Moderate stool volume is present throughout the colon. No mass or abnormal ly mphadenopathy. No free air, free fluid or inflammatory stranding. No urinary bladder abnormality. Ut erus and ovaries show no suspicious findings. IMPRESSION: Negative CT scan of the aorta. No other significant findings on chest, abdomen and upper pelvis examination.
[2018-10-02] MEDS ORDERED: ALTEPLASE 100 ML IV ONE (19:23)
[2018-10-02] MEDS ORDERED: NA CHLORIDE 0.9% 50 ML IV ONE (19:28)
--- NOTE | 2018-10-02 19:30 | EDPHYS ---
Physician Documentation [facility] Name: Ashwini Stokes Age: 23 yrs Sex: Female : 1995 Arrival Date: 10/02/2018 Time: 18:15 Bed 13 Private MD: None, None ED Physician Ata Hall HPI: 10/02 19:44 This 23 yrs old Female presents to ER via Ambulatory with complaints of gs Facial Nubmness,left side numbness. 19:44 The patient's problem is reported as altered mental status, confused, paresthesias, in gs left upper extremity, in left side of face, speech difficulty. Onset: The symptoms/episode began/occurred today, at 15:00, with chest pain left chest, went away subsequently left face numb and left upper arm numb. Duration: The episode is continuous. The symptoms are alleviated by nothing. The symptoms are aggravated by nothing. Associated signs and symptoms: Pertinent negatives: abdominal pain, blurred vision. Severity of symptoms: At their worst the symptoms were severe in the emergency department the symptoms are unchanged. The patient has not experienced similar symptoms in the past. HOME HEALTH NURSE: 18:25 LMP 10/01/2018 Historical: - Allergies: 18:24 No Known Allergies; hj - Home Meds: 18:24 None [Active]; hj - PMHx: 18:24 None; hj - PSHx: 18:24 None; hj - Immunization history:: Adult Immunizations up to date. - Social history:: Smoking status: Patient/guardian denies using tobacco, Patient/guardian denies using alcohol. - Ebola Screening: : Patient negative for fever greater than or equal to 101.5 degrees Fahrenheit, and additional compatible Ebola Virus Disease symptoms Patient denies exposure to infectious person Patient denies travel to an Ebola-affected area in the 21 days before illness onset. ROS: 19:44 All other systems are negative. gs Exam: 19:44 Head/Face: Normocephalic, atraumatic. Eyes: Pupils equal round and reactive to light, gs extra-ocular motions intact. Lids and lashes normal. Conjunctiva and sclera are non-icteric and not injected. Cornea within normal limits. Periorbital areas with no swelling, redness, or edema. ENT: Nares patent. No nasal discharge, no septal abnormalities noted. Tympanic membranes are normal and external auditory canals are clear. Oropharynx with no redness, swelling, or masses, exudates, or evidence of obstruction, uvula midline. Mucous membranes moist. Neck: Trachea midline, no thyromegaly or masses palpated, and no cervical lymphadenopathy. Supple, full range of motion without nuchal rigidity, or vertebral point tenderness. No Meningismus. Chest/axilla: Normal chest wall appearance and motion. Nontender with no deformity. No lesions are appreciated. 19:44 Respiratory: Lungs have equal breath sounds bilaterally, clear to auscultation and percussion. No rales, rhonchi or wheezes noted. No increased work of breathing, no retractions or nasal flaring. Abdomen/GI: Soft, non-tender, with normal bowel sounds. No distension or tympany. No guarding or rebound. No evidence of tenderness throughout. Back: No spinal tenderness. No costovertebral tenderness. Full range of motion. Skin: Warm, dry with normal turgor. Normal color with no rashes, no lesions, and no evidence of cellulitis. MS/ Extremity: Pulses equal, no cyanosis. Neurovascular intact. Full, normal range of motion. 19:44 Cardiovascular: Rate: normal, Rhythm: regular, Pulses: no pulse deficits are appreciated, Heart sounds: murmur, diastolic, grade 1 over 6, Edema: is not appreciated. 19:44 ECG was reviewed by the Attending Physician. 19:44 Neuro: Orientation: to person, place, time, situation, Memory: is normal, Cranial nerves: normal except sensory numb V2 left face, visual bowens are intact. extraocular movements are intact, Nystagmus is absent. Cerebellar function: normal finger to nose testing, Motor: moves all fours, strength is normal, Sensation: numbness, that is severe, of the left ear and left cheek. 19:54 Neuro: Sensation: numbness, that is moderate, of the anterior aspect of left shoulder gs and left bicep, seizure activity, is not displayed by the patient, Abnormal movements: there are no abnormal movements. Vital Signs: 18:25 BP 143 / 95; Pulse 94; Resp 18; Temp 97.8(TE); Pulse Ox 99% on R/A; Weight 61.23 kg; hj Height 5 ft. 3 in. (160.02 cm); Pain 6/10; 18:45 BP 135 / 84; Pulse 79; Resp 14; Pulse Ox 100% ; bp 19:15 BP 140 / 86; Pulse 97; Resp 18 S; Temp 97.9(O); Pulse Ox 100% on R/A; cc3 19:39 BP 134 / 91; Pulse 89; Resp 16 S; Pulse Ox 100% on R/A; cc3 19:54 BP 126 / 81; Pulse 88; Resp 23 S; Pulse Ox 100% on R/A; cc3 20:09 BP 130 / 83; Pulse 88; Resp 17 S; Pulse Ox 99% on R/A; cc3 20:24 BP 122 / 89; Pulse 84; Resp 15 S; Pulse Ox 98% on R/A; cc3 20:39 BP 123 / 76; Pulse 87; Resp 18 S; Pulse Ox 98% on R/A; cc3 21:00 BP 120 / 75; Pulse 84; Resp 19 S; Pulse Ox 100% on R/A; cc3 18:25 Body Mass Index 23.91 (61.23 kg, 160.02 cm) hj NIH Stroke Scale Scores: 18:30 NIHSS Score: 3 bp 18:49 NIHSS Score: 3 gs 19:15 NIHSS Score: 3 cc3 19:39 NIHSS Score: 3 cc3 19:54 NIHSS Score: 3 cc3 20:09 NIHSS Score: 3 cc3 20:24 NIHSS Score: 3 cc3 20:39 NIHSS Score: 3 cc3 20:54 NIHSS Score: 3 cc3 21:09 NIHSS Score: 3 cc3 21:24 NIHSS Score: 3 cc3 MDM: 18:43 Patient medically screened. 19:26 ED course: spoke to dr lugo stroke neuro [facility] gave ct findings and stroke gs scal and time of onset wants tpa even though past 3 hours says up to 4.5 hours. 19:54 Differential diagnosis: CVA, TIA, metabolic disorder, drug effects, taa. Data reviewed: vital signs, nurses notes, lab test result(s), EKG, radiologic studies. Response to treatment: the patient's symptoms have mildly improved after treatment, and as a result, I will transfer. 10/02 18:46 Order name: Basic Metabolic Panel; Complete Time: 19:15 10/02 18:46 Order name: CBC with Diff; Complete Time: 19:15 10/02 18:46 Order name: Protime (+inr); Complete Time: 19:21 gs 10/02 18:54 Order name: Glucose, Ancillary Testing; Complete Time: 19:15 EDMS 10/02 19:45 Order name: Glucose, Ancillary Testing; Complete Time: 19:56 EDMS 10/02 19:56 Order name: Urine Drug Screen gs 10/02 18:35 Order name: CT Head Brain wo Cont; Complete Time: 19:15 bd 10/02 18:46 Order name: CT Aorta for Dissection; Complete Time: 19:15 gs 10/02 18:46 Order name: EKG; Complete Time: 18:47 gs 10/02 19:56 Order name: Test, Serum gs 10/02 19:56 Order name: Urine Drug Screen EDMS 10/02 18:46 Order name: Accucheck; Complete Time: 18:59 gs 10/02 18:46 Order name: Cardiac monitoring; Complete Time: 18:59 gs 10/02 18:46 Order name: EKG - Nurse/Tech; Complete Time: 19:39 gs 10/02 18:46 Order name: IV Saline Lock; Complete Time: 18:59 gs 10/02 18:46 Order name: Labs collected and sent; Complete Time: 18:59 gs 10/02 18:46 Order name: NPO; Complete Time: 19:39 gs 10/02 18:46 Order name: O2 Per Protocol; Complete Time: 19:00 gs 10/02 18:46 Order name: O2 Sat Monitoring; Complete Time: 19:00 gs 10/02 18:46 Order name: Stroke Swallow Screen; Complete Time: 19:39 gs EC:44 Rate is 85 beats/min. Rhythm is regular. AR interval is normal. QRS interval is normal. gs QT interval is normal. T waves are Inverted in leads III, aVF. Clinical impression: Abnormal EKG without significant change. Interpreted by me. Administered Medications: 19:39 Drug: Alteplase {Co-Signature: jd3 (Jasen Mike RN).} {Note: 1939H - bolus 1939H - fc infusion started.} Route: IV Thrombolytics; Rate: calculated rate; 20:40 Follow up: Response: No adverse reaction cc3 19:52 Drug: Tylenol 650 mg Route: PO; fc 21:00 Follow up: Response: No adverse reaction; Pain is unchanged, physician notified cc3 21:10 Drug: fentaNYL (PF) 25 mcg Route: IVP; Site: right antecubital; jd3 21:20 Follow up: Response: No adverse reaction; Pain is decreased cc3 Point of Care Testing: Blood Glucose: 19:27 Blood Glucose: 78 mg/dL; cc3 19:27 taken by pc technician Asher cc3 Ranges: Critical Glucose Levels:Adult <50 mg/dl or >400 mg/dl <40 mg/dl or >180 mg/dl Disposition: 10/02/18 19:29 Transfer ordered to [facility]. Diagnosis is Cerebral infarction. - Reason for transfer: Higher level of care. - Accepting physician is lugo. - Condition is Stable. - Problem is new. - Symptoms are unchanged. Critical care time excluding procedures: 19:54 Critical care time: Bedside Care: 10 minutes, Consultation: 10 minutes, Family gs Intervention: 10 minutes. Total time: 30 minutes NIH Stroke Scale - NIH Stroke Score Date: 10/02/2018 Time: 18:30 Total Score = 3 1a. Level of Consciousness (LOC) - 0(Alert) 1b. Level of Consciousness (LOC) (Year \T\ Age) - 0(Both) 1c. LOC Commands (Open \T\ Closes Eyes/International Student Counselor) - 0(Both) 2. Best Gaze (Lateral Gaze Paresis) - 0(Normal) 3. Visual Field Loss - 0(No visual loss) 4. Facial Palsy - 0(Normal) 5a. Left Arm: Motor (10-second hold) - 0(No drift) 5b. Right Arm: Motor (10-second hold) - 0(No drift) 6a. Left Leg: Motor (5-second hold - always test supine) - 0(No drift) 6b. Right Leg: Motor (5-second hold - always test supine) - 0(No drift) 7. Limb Ataxia (finger/nose \T\ heel/santa - test with eyes open) - 0(Absent) 8. Sensory Loss (pinprick arms/legs/face) - 1(Mild to moderate loss) 9. Best Language: Aphasia (description/naming/reading) - 1(Mild to moderate aphasia) 10. Dysarthria (speech clarity - read or repeat words) - 1(Mild to Moderate) 11. Extinction and Inattention (visual/tactile/auditory/spatial/personal) - 0(No abnormality) Initials: bp NIH Stroke Scale - NIH Stroke Score Date: 10/02/2018 Time: 18:49 Total Score = 3 1a. Level of Consciousness (LOC) - 0(Alert) 1b. Level of Consciousness (LOC) (Year \T\ Age) - 0(Both) 1c. LOC Commands (Open \T\ Closes Eyes/International Student Counselor) - 0(Both) 2. Best Gaze (Lateral Gaze Paresis) - 0(Normal) 3. Visual Field Loss - 0(No visual loss) 4. Facial Palsy - 0(Normal) 5a. Left Arm: Motor (10-second hold) - 0(No drift) 5b. Right Arm: Motor (10-second hold) - 0(No drift) 6a. Left Leg: Motor (5-second hold - always test supine) - 0(No drift) 6b. Right Leg: Motor (5-second hold - always test supine) - 0(No drift) 7. Limb Ataxia (finger/nose \T\ heel/santa - test with eyes open) - 0(Absent) 8. Sensory Loss (pinprick arms/legs/face) - 1(Mild to moderate loss) 9. Best Language: Aphasia (description/naming/reading) - 1(Mild to moderate aphasia) 10. Dysarthria (speech clarity - read or repeat words) - 1(Mild to Moderate) 11. Extinction and Inattention (visual/tactile/auditory/spatial/personal) - 0(No abnormality) Initials: gs NIH Stroke Scale - NIH Stroke Score Date: 10/02/2018 Time: 19:15 Total Score = 3 1a. Level of Consciousness (LOC) - 0(Alert) 1b. Level of Consciousness (LOC) (Year \T\ Age) - 0(Both) 1c. LOC Commands (Open \T\ Closes Eyes/International Student Counselor) - 0(Both) 2. Best Gaze (Lateral Gaze Paresis) - 0(Normal) 3. Visual Field Loss - 0(No visual loss) 4. Facial Palsy - 0(Normal) 5a. Left Arm: Motor (10-second hold) - 0(No drift) 5b. Right Arm: Motor (10-second hold) - 0(No drift) 6a. Left Leg: Motor (5-second hold - always test supine) - 0(No drift) 6b. Right Leg: Motor (5-second hold - always test supine) - 0(No drift) 7. Limb Ataxia (finger/nose \T\ heel/santa - test with eyes open) - 0(Absent) 8. Sensory Loss (pinprick arms/legs/face) - 1(Mild to moderate loss) 9. Best Language: Aphasia (description/naming/reading) - 1(Mild to moderate aphasia) 10. Dysarthria (speech clarity - read or repeat words) - 1(Mild to Moderate) 11. Extinction and Inattention (visual/tactile/auditory/spatial/personal) - 0(No abnormality) Initials: cc3 NIH Stroke Scale - NIH Stroke Score Date: 10/02/2018 Time: 19:39 Total Score = 3 1a. Level of Consciousness (LOC) - 0(Alert) 1b. Level of Consciousness (LOC) (Year \T\ Age) - 0(Both) 1c. LOC Commands (Open \T\ Closes Eyes/International Student Counselor) - 0(Both) 2. Best Gaze (Lateral Gaze Paresis) - 0(Normal) 3. Visual Field Loss - 0(No visual loss) 4. Facial Palsy - 0(Normal) 5a. Left Arm: Motor (10-second hold) - 0(No drift) 5b. Right Arm: Motor (10-second hold) - 0(No drift) 6a. Left Leg: Motor (5-second hold - always test supine) - 0(No drift) 6b. Right Leg: Motor (5-second hold - always test supine) - 0(No drift) 7. Limb Ataxia (finger/nose \T\ heel/santa - test with eyes open) - 0(Absent) 8. Sensory Loss (pinprick arms/legs/face) - 1(Mild to moderate loss) 9. Best Language: Aphasia (description/naming/reading) - 1(Mild to moderate aphasia) 10. Dysarthria (speech clarity - read or repeat words) - 1(Mild to Moderate) 11. Extinction and Inattention (visual/tactile/auditory/spatial/personal) - 0(No abnormality) Initials: cc3 NIH Stroke Scale - NIH Stroke Score Date: 10/02/2018 Time: 19:54 Total Score = 3 1a. Level of Consciousness (LOC) - 0(Alert) 1b. Level of Consciousness (LOC) (Year \T\ Age) - 0(Both) 1c. LOC Commands (Open \T\ Closes Eyes/International Student Counselor) - 0(Both) 2. Best Gaze (Lateral Gaze Paresis) - 0(Normal) 3. Visual Field Loss - 0(No visual loss) 4. Facial Palsy - 0(Normal) 5a. Left Arm: Motor (10-second hold) - 0(No drift) 5b. Right Arm: Motor (10-second hold) - 0(No drift) 6a. Left Leg: Motor (5-second hold - always test supine) - 0(No drift) 6b. Right Leg: Motor (5-second hold - always test supine) - 0(No drift) 7. Limb Ataxia (finger/nose \T\ heel/santa - test with eyes open) - 0(Absent) 8. Sensory Loss (pinprick arms/legs/face) - 1(Mild to moderate loss) 9. Best Language: Aphasia (description/naming/reading) - 1(Mild to moderate aphasia) 10. Dysarthria (speech clarity - read or repeat words) - 1(Mild to Moderate) 11. Extinction and Inattention (visual/tactile/auditory/spatial/personal) - 0(No abnormality) Initials: cc3 NIH Stroke Scale - NIH Stroke Score Date: 10/02/2018 Time: 20:09 Total Score = 3 1a. Level of Consciousness (LOC) - 0(Alert) 1b. Level of Consciousness (LOC) (Year \T\ Age) - 0(Both) 1c. LOC Commands (Open \T\ Closes Eyes/International Student Counselor) - 0(Both) 2. Best Gaze (Lateral Gaze Paresis) - 0(Normal) 3. Visual Field Loss - 0(No visual loss) 4. Facial Palsy - 0(Normal) 5a. Left Arm: Motor (10-second hold) - 0(No drift) 5b. Right Arm: Motor (10-second hold) - 0(No drift) 6a. Left Leg: Motor (5-second hold - always test supine) - 0(No drift) 6b. Right Leg: Motor (5-second hold - always test supine) - 0(No drift) 7. Limb Ataxia (finger/nose \T\ heel/santa - test with eyes open) - 0(Absent) 8. Sensory Loss (pinprick arms/legs/face) - 1(Mild to moderate loss) 9. Best Language: Aphasia (description/naming/reading) - 1(Mild to moderate aphasia) 10. Dysarthria (speech clarity - read or repeat words) - 1(Mild to Moderate) 11. Extinction and Inattention (visual/tactile/auditory/spatial/personal) - 0(No abnormality) Initials: cc3 NIH Stroke Scale - NIH Stroke Score Date: 10/02/2018 Time: 20:24 Total Score = 3 1a. Level of Consciousness (LOC) - 0(Alert) 1b. Level of Consciousness (LOC) (Year \T\ Age) - 0(Both) 1c. LOC Commands (Open \T\ Closes Eyes/International Student Counselor) - 0(Both) 2. Best Gaze (Lateral Gaze Paresis) - 0(Normal) 3. Visual Field Loss - 0(No visual loss) 4. Facial Palsy - 0(Normal) 5a. Left Arm: Motor (10-second hold) - 0(No drift) 5b. Right Arm: Motor (10-second hold) - 0(No drift) 6a. Left Leg: Motor (5-second hold - always test supine) - 0(No drift) 6b. Right Leg: Motor (5-second hold - always test supine) - 0(No drift) 7. Limb Ataxia (finger/nose \T\ heel/santa - test with eyes open) - 0(Absent) 8. Sensory Loss (pinprick arms/legs/face) - 1(Mild to moderate loss) 9. Best Language: Aphasia (description/naming/reading) - 1(Mild to moderate aphasia) 10. Dysarthria (speech clarity - read or repeat words) - 1(Mild to Moderate) 11. Extinction and Inattention (visual/tactile/auditory/spatial/personal) - 0(No abnormality) Initials: cc3 NIH Stroke Scale - NIH Stroke Score Date: 10/02/2018 Time: 20:39 Total Score = 3 1a. Level of Consciousness (LOC) - 0(Alert) 1b. Level of Consciousness (LOC) (Year \T\ Age) - 0(Both) 1c. LOC Commands (Open \T\ Closes Eyes/International Student Counselor) - 0(Both) 2. Best Gaze (Lateral Gaze Paresis) - 0(Normal) 3. Visual Field Loss - 0(No visual loss) 4. Facial Palsy - 0(Normal) 5a. Left Arm: Motor (10-second hold) - 0(No drift) 5b. Right Arm: Motor (10-second hold) - 0(No drift) 6a. Left Leg: Motor (5-second hold - always test supine) - 0(No drift) 6b. Right Leg: Motor (5-second hold - always test supine) - 0(No drift) 7. Limb Ataxia (finger/nose \T\ heel/santa - test with eyes open) - 0(Absent) 8. Sensory Loss (pinprick arms/legs/face) - 1(Mild to moderate loss) 9. Best Language: Aphasia (description/naming/reading) - 1(Mild to moderate aphasia) 10. Dysarthria (speech clarity - read or repeat words) - 1(Mild to Moderate) 11. Extinction and Inattention (visual/tactile/auditory/spatial/personal) - 0(No abnormality) Initials: cc3 NIH Stroke Scale - NIH Stroke Score Date: 10/02/2018 Time: 20:54 Total Score = 3 1a. Level of Consciousness (LOC) - 0(Alert) 1b. Level of Consciousness (LOC) (Year \T\ Age) - 0(Both) 1c. LOC Commands (Open \T\ Closes Eyes/International Student Counselor) - 0(Both) 2. Best Gaze (Lateral Gaze Paresis) - 0(Normal) 3. Visual Field Loss - 0(No visual loss) 4. Facial Palsy - 0(Normal) 5a. Left Arm: Motor (10-second hold) - 0(No drift) 5b. Right Arm: Motor (10-second hold) - 0(No drift) 6a. Left Leg: Motor (5-second hold - always test supine) - 0(No drift) 6b. Right Leg: Motor (5-second hold - always test supine) - 0(No drift) 7. Limb Ataxia (finger/nose \T\ heel/santa - test with eyes open) - 0(Absent) 8. Sensory Loss (pinprick arms/legs/face) - 1(Mild to moderate loss) 9. Best Language: Aphasia (description/naming/reading) - 1(Mild to moderate aphasia) 10. Dysarthria (speech clarity - read or repeat words) - 1(Mild to Moderate) 11. Extinction and Inattention (visual/tactile/auditory/spatial/personal) - 0(No abnormality) Initials: cc3 NIH Stroke Scale - NIH Stroke Score Date: 10/02/2018 Time: 21:09 Total Score = 3 1a. Level of Consciousness (LOC) - 0(Alert) 1b. Level of Consciousness (LOC) (Year \T\ Age) - 0(Both) 1c. LOC Commands (Open \T\ Closes Eyes/International Student Counselor) - 0(Both) 2. Best Gaze (Lateral Gaze Paresis) - 0(Normal) 3. Visual Field Loss - 0(No visual loss) 4. Facial Palsy - 0(Normal) 5a. Left Arm: Motor (10-second hold) - 0(No drift) 5b. Right Arm: Motor (10-second hold) - 0(No drift) 6a. Left Leg: Motor (5-second hold - always test supine) - 0(No drift) 6b. Right Leg: Motor (5-second hold - always test supine) - 0(No drift) 7. Limb Ataxia (finger/nose \T\ heel/santa - test with eyes open) - 0(Absent) 8. Sensory Loss (pinprick arms/legs/face) - 1(Mild to moderate loss) 9. Best Language: Aphasia (description/naming/reading) - 1(Mild to moderate aphasia) 10. Dysarthria (speech clarity - read or repeat words) - 1(Mild to Moderate) 11. Extinction and Inattention (visual/tactile/auditory/spatial/personal) - 0(No abnormality) Initials: cc3 NIH Stroke Scale - NIH Stroke Score Date: 10/02/2018 Time: 21:24 Total Score = 3 1a. Level of Consciousness (LOC) - 0(Alert) 1b. Level of Consciousness (LOC) (Year \T\ Age) - 0(Both) 1c. LOC Commands (Open \T\ Closes Eyes/International Student Counselor) - 0(Both) 2. Best Gaze (Lateral Gaze Paresis) - 0(Normal) 3. Visual Field Loss - 0(No visual loss) 4. Facial Palsy - 0(Normal) 5a. Left Arm: Motor (10-second hold) - 0(No drift) 5b. Right Arm: Motor (10-second hold) - 0(No drift) 6a. Left Leg: Motor (5-second hold - always test supine) - 0(No drift) 6b. Right Leg: Motor (5-second hold - always test supine) - 0(No drift) 7. Limb Ataxia (finger/nose \T\ heel/santa - test with eyes open) - 0(Absent) 8. Sensory Loss (pinprick arms/legs/face) - 1(Mild to moderate loss) 9. Best Language: Aphasia (description/naming/reading) - 1(Mild to moderate aphasia) 10. Dysarthria (speech clarity - read or repeat words) - 1(Mild to Moderate) 11. Extinction and Inattention (visual/tactile/auditory/spatial/personal) - 0(No abnormality) Initials: cc3 Signatures: Dispatcher [employer] EDMS Jordyn De Santiago RN RN fc Yury Couch RN RN hj Starr, Gregory, MD MD gs Davies, Jonathon, RN RN jd3 Rae Cohn 3 Jasen Mike RN jd3 Corrections: (The following items were deleted from the chart) 21:39 19:29 10/02/2018 19:29 Transfer ordered to [facility]. fc Diagnosis is Cerebral infarction. Reason for transfer: Higher level of care. Accepting physician is lugo. Condition is Stable. Problem is new. Symptoms are unchanged. gs
--- NOTE | 2018-10-02 19:30 | ER ---
Nurse's Notes [facility] Name: Ashwini Stokes Age: 23 yrs Sex: Female : 1995 Arrival Date: 10/02/2018 Time: 18:15 Bed 13 Private MD: None, None Diagnosis: Cerebral infarction Presentation: 10/02 18:21 Presenting complaint: Patient states: my chest started hurting around 3 pm today and my hj L arm went numb, neck, and cheek, i have difficulty speaking too started an hour ago; denies SOB; reports nausea; reports headache. Transition of care: patient was not received from another setting of care. Onset of symptoms was October 02, 2018. Risk Assessment: Do you want to hurt yourself or someone else? Patient reports no desire to harm self or others. Initial Sepsis Screen: Does the patient meet any 2 criteria? No. Patient's initial sepsis screen is negative. Does the patient have a suspected source of infection? No. Patient's initial sepsis screen is negative. Care prior to arrival: None. 18:21 Method Of Arrival: Ambulatory 18:21 Acuity: EDWIN 3 18:21 Note called code stroke at 1821, wheeled to CT at 1822; last known normal was 3pm;. bp Triage Assessment: 18:25 General: Appears in no apparent distress. uncomfortable, Behavior is calm, cooperative, hj appropriate for age. Pain: Complains of pain in chest. TAP BUILDER: 18:25 LMP 10/01/2018 Historical: - Allergies: 18:24 No Known Allergies; hj - Home Meds: 18:24 None [Active]; hj - PMHx: 18:24 None; hj - PSHx: 18:24 None; hj - Immunization history:: Adult Immunizations up to date. - Social history:: Smoking status: Patient/guardian denies using tobacco, Patient/guardian denies using alcohol. - Ebola Screening: : Patient negative for fever greater than or equal to 101.5 degrees Fahrenheit, and additional compatible Ebola Virus Disease symptoms Patient denies exposure to infectious person Patient denies travel to an Ebola-affected area in the 21 days before illness onset. Screenin:25 Abuse screen: Denies threats or abuse. Denies injuries from another. Nutritional hj screening: No deficits noted. Tuberculosis screening: No symptoms or risk factors identified. Fall Risk None identified. 19:38 The patient has not been NPO before screening. The patient is alert, able to follow fc commands. slow to answer Just slow to get words out The patient does not exhibit difficulty understanding words. The patient is able to swallow own secretions with no drooling or need for suction. Patient tolerated one teaspoon of water. No drooling, immediate coughing, gurgling, or clearing of the throat was noted. The patient tolerated 90mL of water. No drooling, immediate coughing, gurgling, or clearing of the throat was noted. The patient passed the bedside swallow screening. Oral medications may be given as ordered. Contact Physician for further diet orders. Provider notified of bedside swallow screening results: Ata Hall MD. Assessment: 18:30 General: Pt back from CT. Dr. Hall at bedside assessing patient. . ss 18:30 General: Appears distressed, comfortable, slender, Behavior is cooperative, appropriate bp for age, anxious. Pain: Complains of pain in chest. Neuro: Level of Consciousness is awake, alert, obeys commands, Oriented to person, place, time, situation, Appropriate for age. Cardiovascular: Rhythm is sinus rhythm. Respiratory: Airway is patent Respiratory effort is even, unlabored, Respiratory pattern is regular, symmetrical. GI: No signs and/or symptoms were reported involving the gastrointestinal system. : No signs and/or symptoms were reported regarding the genitourinary system. EENT: No deficits noted. Derm: No deficits noted. Musculoskeletal: Range of motion: intact in all extremities. 18:40 Reassessment: CT report negative. Dr. Hall notified by EDWINA Martini. ss 18:55 Reassessment: PT RETURNED TO CT FOR CT PE. bp 18:56 Reassessment: Dr. Hall orders to wait for CT chest to be negative prior to ss administering TPA. 19:00 Reassessment: Received report from morning shift DEVON Daley that patient is a case of cc3 chest pain, left side and left facial numbness since 1500H today, code stroke was activated for the patient as endorsed and that the patient is currently at CT scan department now. 19:15 Reassessment: Patient appears in no apparent distress at this time. Patient and/or cc3 family updated on plan of care and expected duration. Pain level reassessed. Patient is alert, oriented x 3, equal unlabored respirations, skin warm/dry/pink. Patient came back from CT scan department, with IV cannula gauge 18 at the right ACV saline locked. Dr. Hall at bedside explaining the need for tPa administration. Patient consented and signed for the tPa administration. 19:39 Reassessment: Patient appears in no apparent distress at this time. Patient and/or cc3 family updated on plan of care and expected duration. Pain level reassessed. Patient is alert, oriented x 3, equal unlabored respirations, skin warm/dry/pink. Started IV tPa bolus administration, monitored the patient closely. 19:40 Reassessment: Patient appears in no apparent distress at this time. Patient and/or cc3 family updated on plan of care and expected duration. Pain level reassessed. Patient is alert, oriented x 3, equal unlabored respirations, skin warm/dry/pink. Intravenous tPa infusion over an hour started, monitored the patient closely. 19:49 Reassessment: Pt now complaining of headache. Requesting something for it. I spoke with fc Dr Hall and explained that pt has passed her swallow screening and he gave me orders for Tylenol. 20:40 Reassessment: Patient appears in no apparent distress at this time. Patient and/or cc3 family updated on plan of care and expected duration. Pain level reassessed. Patient is alert, oriented x 3, equal unlabored respirations, skin warm/dry/pink. Intravenous tPa infusion completed. 20:50 Reassessment: Patient for transfer to [facility], called for report but was told cc3 that the receiving nurse will call me back, charge nurse Jordyn informed. 21:09 Reassessment: Patient appears in no apparent distress at this time. Patient and/or cc3 family updated on plan of care and expected duration. Pain level reassessed. Patient is alert, oriented x 3, equal unlabored respirations, skin warm/dry/pink. Report handed over to DEVON Arenas for continuity of care. 21:20 Reassessment: Patient appears in no apparent distress at this time. Patient and/or cc3 family updated on plan of care and expected duration. Pain level reassessed. Patient is alert, oriented x 3, equal unlabored respirations, skin warm/dry/pink. [facility] came to fetch the patient for transfer. 21:30 Reassessment: Patient left ER for transfer vitally stable by ambulance stretcher. cc3 Vital Signs: 18:25 BP 143 / 95; Pulse 94; Resp 18; Temp 97.8(TE); Pulse Ox 99% on R/A; Weight 61.23 kg; hj Height 5 ft. 3 in. (160.02 cm); Pain 6/10; 18:45 BP 135 / 84; Pulse 79; Resp 14; Pulse Ox 100% ; bp 19:15 BP 140 / 86; Pulse 97; Resp 18 S; Temp 97.9(O); Pulse Ox 100% on R/A; cc3 19:39 BP 134 / 91; Pulse 89; Resp 16 S; Pulse Ox 100% on R/A; cc3 19:54 BP 126 / 81; Pulse 88; Resp 23 S; Pulse Ox 100% on R/A; cc3 20:09 BP 130 / 83; Pulse 88; Resp 17 S; Pulse Ox 99% on R/A; cc3 20:24 BP 122 / 89; Pulse 84; Resp 15 S; Pulse Ox 98% on R/A; cc3 20:39 BP 123 / 76; Pulse 87; Resp 18 S; Pulse Ox 98% on R/A; cc3 21:00 BP 120 / 75; Pulse 84; Resp 19 S; Pulse Ox 100% on R/A; cc3 18:25 Body Mass Index 23.91 (61.23 kg, 160.02 cm) NIH Stroke Scale Scores: 18:30 NIHSS Score: 3 bp 18:49 NIHSS Score: 3 gs 19:15 NIHSS Score: 3 cc3 19:39 NIHSS Score: 3 cc3 19:54 NIHSS Score: 3 cc3 20:09 NIHSS Score: 3 cc3 20:24 NIHSS Score: 3 cc3 20:39 NIHSS Score: 3 cc3 20:54 NIHSS Score: 3 cc3 21:09 NIHSS Score: 3 cc3 21:24 NIHSS Score: 3 cc3 ED Course: 18:15 Patient arrived in ED. mr 18:16 None, None is Private Physician. mr 18:24 Triage completed. hj 18:25 Arm band placed on right wrist. hj 18:30 Edi Reed, RN is Primary Nurse. bp 18:30 Patient has correct armband on for positive identification. Bed in low position. Call bp light in reach. Side rails up X2. Adult w/ patient. 18:30 Inserted saline lock: 18 gauge in right antecubital area, using aseptic technique. bp 18:35 Ata Hall MD is Attending Physician. gs 18:38 CT Head Brain wo Cont In Process Unspecified. EDMS 18:44 initiated transfer to [facility]. Yuki spoke to Michelle Bowers . gm 18:47 Doc to doc was done by Dr Hall and Dr Faustin. gm 19:[address] nj 19:04 CT Aorta for Dissection In Process Unspecified. EDMS 19:10 administrative approval was given by [facility] at 1910. 19:31 patient will be going to [facility] [address] [id number] bed 5. 21:00 No provider procedures requiring assistance completed. Patient transferred, IV remains fc in place. Administered Medications: 19:39 Drug: Alteplase {Co-Signature: jd3 (Jasen Mike RN).} {Note: 9H - bolus 1939H - fc infusion started.} Route: IV Thrombolytics; Rate: calculated rate; 20:40 Follow up: Response: No adverse reaction cc3 19:52 Drug: Tylenol 650 mg Route: PO; fc 21:00 Follow up: Response: No adverse reaction; Pain is unchanged, physician notified cc3 21:10 Drug: fentaNYL (PF) 25 mcg Route: IVP; Site: right antecubital; jd3 21:20 Follow up: Response: No adverse reaction; Pain is decreased cc3 Point of Care Testing: Blood Glucose: 19:27 Blood Glucose: 78 mg/dL; cc3 [facility] R[facility]: Outcome: 19:29 ER care complete, transfer ordered by . 21:09 Transferred by ground EMS to [facility], Transfer form completed. 21:09 Condition: stable 21:09 Instructed on the need for transfer, Demonstrated understanding of instructions. 21:39 Patient left the ED. NIH Stroke Scale - NIH Stroke Score Date: 10/02/2018 Time: 18:30 Total Score = 3 1a. Level of Consciousness (LOC) - 0(Alert) 1b. Level of Consciousness (LOC) (Year \T\ Age) - 0(Both) 1c. LOC Commands (Open \T\ Closes Eyes/Customer Servicer) - 0(Both) 2. Best Gaze (Lateral Gaze Paresis) - 0(Normal) 3. Visual Field Loss - 0(No visual loss) 4. Facial Palsy - 0(Normal) 5a. Left Arm: Motor (10-second hold) - 0(No drift) 5b. Right Arm: Motor (10-second hold) - 0(No drift) 6a. Left Leg: Motor (5-second hold - always test supine) - 0(No drift) 6b. Right Leg: Motor (5-second hold - always test supine) - 0(No drift) 7. Limb Ataxia (finger/nose \T\ heel/santa - test with eyes open) - 0(Absent) 8. Sensory Loss (pinprick arms/legs/face) - 1(Mild to moderate loss) 9. Best Language: Aphasia (description/naming/reading) - 1(Mild to moderate aphasia) 10. Dysarthria (speech clarity - read or repeat words) - 1(Mild to Moderate) 11. Extinction and Inattention (visual/tactile/auditory/spatial/personal) - 0(No abnormality) Initials: bp NIH Stroke Scale - NIH Stroke Score Date: 10/02/2018 Time: 18:49 Total Score = 3 1a. Level of Consciousness (LOC) - 0(Alert) 1b. Level of Consciousness (LOC) (Year \T\ Age) - 0(Both) 1c. LOC Commands (Open \T\ Closes Eyes/Customer Servicer) - 0(Both) 2. Best Gaze (Lateral Gaze Paresis) - 0(Normal) 3. Visual Field Loss - 0(No visual loss) 4. Facial Palsy - 0(Normal) 5a. Left Arm: Motor (10-second hold) - 0(No drift) 5b. Right Arm: Motor (10-second hold) - 0(No drift) 6a. Left Leg: Motor (5-second hold - always test supine) - 0(No drift) 6b. Right Leg: Motor (5-second hold - always test supine) - 0(No drift) 7. Limb Ataxia (finger/nose \T\ heel/santa - test with eyes open) - 0(Absent) 8. Sensory Loss (pinprick arms/legs/face) - 1(Mild to moderate loss) 9. Best Language: Aphasia (description/naming/reading) - 1(Mild to moderate aphasia) 10. Dysarthria (speech clarity - read or repeat words) - 1(Mild to Moderate) 11. Extinction and Inattention (visual/tactile/auditory/spatial/personal) - 0(No abnormality) Initials: gs NIH Stroke Scale - NIH Stroke Score Date: 10/02/2018 Time: 19:15 Total Score = 3 1a. Level of Consciousness (LOC) - 0(Alert) 1b. Level of Consciousness (LOC) (Year \T\ Age) - 0(Both) 1c. LOC Commands (Open \T\ Closes Eyes/Customer Servicer) - 0(Both) 2. Best Gaze (Lateral Gaze Paresis) - 0(Normal) 3. Visual Field Loss - 0(No visual loss) 4. Facial Palsy - 0(Normal) 5a. Left Arm: Motor (10-second hold) - 0(No drift) 5b. Right Arm: Motor (10-second hold) - 0(No drift) 6a. Left Leg: Motor (5-second hold - always test supine) - 0(No drift) 6b. Right Leg: Motor (5-second hold - always test supine) - 0(No drift) 7. Limb Ataxia (finger/nose \T\ heel/santa - test with eyes open) - 0(Absent) 8. Sensory Loss (pinprick arms/legs/face) - 1(Mild to moderate loss) 9. Best Language: Aphasia (description/naming/reading) - 1(Mild to moderate aphasia) 10. Dysarthria (speech clarity - read or repeat words) - 1(Mild to Moderate) 11. Extinction and Inattention (visual/tactile/auditory/spatial/personal) - 0(No abnormality) Initials: cc3 NIH Stroke Scale - NIH Stroke Score Date: 10/02/2018 Time: 19:39 Total Score = 3 1a. Level of Consciousness (LOC) - 0(Alert) 1b. Level of Consciousness (LOC) (Year \T\ Age) - 0(Both) 1c. LOC Commands (Open \T\ Closes Eyes/Customer Servicer) - 0(Both) 2. Best Gaze (Lateral Gaze Paresis) - 0(Normal) 3. Visual Field Loss - 0(No visual loss) 4. Facial Palsy - 0(Normal) 5a. Left Arm: Motor (10-second hold) - 0(No drift) 5b. Right Arm: Motor (10-second hold) - 0(No drift) 6a. Left Leg: Motor (5-second hold - always test supine) - 0(No drift) 6b. Right Leg: Motor (5-second hold - always test supine) - 0(No drift) 7. Limb Ataxia (finger/nose \T\ heel/santa - test with eyes open) - 0(Absent) 8. Sensory Loss (pinprick arms/legs/face) - 1(Mild to moderate loss) 9. Best Language: Aphasia (description/naming/reading) - 1(Mild to moderate aphasia) 10. Dysarthria (speech clarity - read or repeat words) - 1(Mild to Moderate) 11. Extinction and Inattention (visual/tactile/auditory/spatial/personal) - 0(No abnormality) Initials: 3 NIH Stroke Scale - NIH Stroke Score Date: 10/02/2018 Time: 19:54 Total Score = 3 1a. Level of Consciousness (LOC) - 0(Alert) 1b. Level of Consciousness (LOC) (Year \T\ Age) - 0(Both) 1c. LOC Commands (Open \T\ Closes Eyes/Customer Servicer) - 0(Both) 2. Best Gaze (Lateral Gaze Paresis) - 0(Normal) 3. Visual Field Loss - 0(No visual loss) 4. Facial Palsy - 0(Normal) 5a. Left Arm: Motor (10-second hold) - 0(No drift) 5b. Right Arm: Motor (10-second hold) - 0(No drift) 6a. Left Leg: Motor (5-second hold - always test supine) - 0(No drift) 6b. Right Leg: Motor (5-second hold - always test supine) - 0(No drift) 7. Limb Ataxia (finger/nose \T\ heel/santa - test with eyes open) - 0(Absent) 8. Sensory Loss (pinprick arms/legs/face) - 1(Mild to moderate loss) 9. Best Language: Aphasia (description/naming/reading) - 1(Mild to moderate aphasia) 10. Dysarthria (speech clarity - read or repeat words) - 1(Mild to Moderate) 11. Extinction and Inattention (visual/tactile/auditory/spatial/personal) - 0(No abnormality) Initials: 3 NIH Stroke Scale - NIH Stroke Score Date: 10/02/2018 Time: 20:09 Total Score = 3 1a. Level of Consciousness (LOC) - 0(Alert) 1b. Level of Consciousness (LOC) (Year \T\ Age) - 0(Both) 1c. LOC Commands (Open \T\ Closes Eyes/Customer Servicer) - 0(Both) 2. Best Gaze (Lateral Gaze Paresis) - 0(Normal) 3. Visual Field Loss - 0(No visual loss) 4. Facial Palsy - 0(Normal) 5a. Left Arm: Motor (10-second hold) - 0(No drift) 5b. Right Arm: Motor (10-second hold) - 0(No drift) 6a. Left Leg: Motor (5-second hold - always test supine) - 0(No drift) 6b. Right Leg: Motor (5-second hold - always test supine) - 0(No drift) 7. Limb Ataxia (finger/nose \T\ heel/santa - test with eyes open) - 0(Absent) 8. Sensory Loss (pinprick arms/legs/face) - 1(Mild to moderate loss) 9. Best Language: Aphasia (description/naming/reading) - 1(Mild to moderate aphasia) 10. Dysarthria (speech clarity - read or repeat words) - 1(Mild to Moderate) 11. Extinction and Inattention (visual/tactile/auditory/spatial/personal) - 0(No abnormality) Initials: cc3 NIH Stroke Scale - NIH Stroke Score Date: 10/02/2018 Time: 20:24 Total Score = 3 1a. Level of Consciousness (LOC) - 0(Alert) 1b. Level of Consciousness (LOC) (Year \T\ Age) - 0(Both) 1c. LOC Commands (Open \T\ Closes Eyes/Customer Servicer) - 0(Both) 2. Best Gaze (Lateral Gaze Paresis) - 0(Normal) 3. Visual Field Loss - 0(No visual loss) 4. Facial Palsy - 0(Normal) 5a. Left Arm: Motor (10-second hold) - 0(No drift) 5b. Right Arm: Motor (10-second hold) - 0(No drift) 6a. Left Leg: Motor (5-second hold - always test supine) - 0(No drift) 6b. Right Leg: Motor (5-second hold - always test supine) - 0(No drift) 7. Limb Ataxia (finger/nose \T\ heel/santa - test with eyes open) - 0(Absent) 8. Sensory Loss (pinprick arms/legs/face) - 1(Mild to moderate loss) 9. Best Language: Aphasia (description/naming/reading) - 1(Mild to moderate aphasia) 10. Dysarthria (speech clarity - read or repeat words) - 1(Mild to Moderate) 11. Extinction and Inattention (visual/tactile/auditory/spatial/personal) - 0(No abnormality) Initials: cc3 NIH Stroke Scale - NIH Stroke Score Date: 10/02/2018 Time: 20:39 Total Score = 3 1a. Level of Consciousness (LOC) - 0(Alert) 1b. Level of Consciousness (LOC) (Year \T\ Age) - 0(Both) 1c. LOC Commands (Open \T\ Closes Eyes/Customer Servicer) - 0(Both) 2. Best Gaze (Lateral Gaze Paresis) - 0(Normal) 3. Visual Field Loss - 0(No visual loss) 4. Facial Palsy - 0(Normal) 5a. Left Arm: Motor (10-second hold) - 0(No drift) 5b. Right Arm: Motor (10-second hold) - 0(No drift) 6a. Left Leg: Motor (5-second hold - always test supine) - 0(No drift) 6b. Right Leg: Motor (5-second hold - always test supine) - 0(No drift) 7. Limb Ataxia (finger/nose \T\ heel/santa - test with eyes open) - 0(Absent) 8. Sensory Loss (pinprick arms/legs/face) - 1(Mild to moderate loss) 9. Best Language: Aphasia (description/naming/reading) - 1(Mild to moderate aphasia) 10. Dysarthria (speech clarity - read or repeat words) - 1(Mild to Moderate) 11. Extinction and Inattention (visual/tactile/auditory/spatial/personal) - 0(No abnormality) Initials: cc3 NIH Stroke Scale - NIH Stroke Score Date: 10/02/2018 Time: 20:54 Total Score = 3 1a. Level of Consciousness (LOC) - 0(Alert) 1b. Level of Consciousness (LOC) (Year \T\ Age) - 0(Both) 1c. LOC Commands (Open \T\ Closes Eyes/Customer Servicer) - 0(Both) 2. Best Gaze (Lateral Gaze Paresis) - 0(Normal) 3. Visual Field Loss - 0(No visual loss) 4. Facial Palsy - 0(Normal) 5a. Left Arm: Motor (10-second hold) - 0(No drift) 5b. Right Arm: Motor (10-second hold) - 0(No drift) 6a. Left Leg: Motor (5-second hold - always test supine) - 0(No drift) 6b. Right Leg: Motor (5-second hold - always test supine) - 0(No drift) 7. Limb Ataxia (finger/nose \T\ heel/santa - test with eyes open) - 0(Absent) 8. Sensory Loss (pinprick arms/legs/face) - 1(Mild to moderate loss) 9. Best Language: Aphasia (description/naming/reading) - 1(Mild to moderate aphasia) 10. Dysarthria (speech clarity - read or repeat words) - 1(Mild to Moderate) 11. Extinction and Inattention (visual/tactile/auditory/spatial/personal) - 0(No abnormality) Initials: cc3 NIH Stroke Scale - NIH Stroke Score Date: 10/02/2018 Time: 21:09 Total Score = 3 1a. Level of Consciousness (LOC) - 0(Alert) 1b. Level of Consciousness (LOC) (Year \T\ Age) - 0(Both) 1c. LOC Commands (Open \T\ Closes Eyes/Customer Servicer) - 0(Both) 2. Best Gaze (Lateral Gaze Paresis) - 0(Normal) 3. Visual Field Loss - 0(No visual loss) 4. Facial Palsy - 0(Normal) 5a. Left Arm: Motor (10-second hold) - 0(No drift) 5b. Right Arm: Motor (10-second hold) - 0(No drift) 6a. Left Leg: Motor (5-second hold - always test supine) - 0(No drift) 6b. Right Leg: Motor (5-second hold - always test supine) - 0(No drift) 7. Limb Ataxia (finger/nose \T\ heel/santa - test with eyes open) - 0(Absent) 8. Sensory Loss (pinprick arms/legs/face) - 1(Mild to moderate loss) 9. Best Language: Aphasia (description/naming/reading) - 1(Mild to moderate aphasia) 10. Dysarthria (speech clarity - read or repeat words) - 1(Mild to Moderate) 11. Extinction and Inattention (visual/tactile/auditory/spatial/personal) - 0(No abnormality) Initials: cc3 NIH Stroke Scale - NIH Stroke Score Date: 10/02/2018 Time: 21:24 Total Score = 3 1a. Level of Consciousness (LOC) - 0(Alert) 1b. Level of Consciousness (LOC) (Year \T\ Age) - 0(Both) 1c. LOC Commands (Open \T\ Closes Eyes/Customer Servicer) - 0(Both) 2. Best Gaze (Lateral Gaze Paresis) - 0(Normal) 3. Visual Field Loss - 0(No visual loss) 4. Facial Palsy - 0(Normal) 5a. Left Arm: Motor (10-second hold) - 0(No drift) 5b. Right Arm: Motor (10-second hold) - 0(No drift) 6a. Left Leg: Motor (5-second hold - always test supine) - 0(No drift) 6b. Right Leg: Motor (5-second hold - always test supine) - 0(No drift) 7. Limb Ataxia (finger/nose \T\ heel/santa - test with eyes open) - 0(Absent) 8. Sensory Loss (pinprick arms/legs/face) - 1(Mild to moderate loss) 9. Best Language: Aphasia (description/naming/reading) - 1(Mild to moderate aphasia) 10. Dysarthria (speech clarity - read or repeat words) - 1(Mild to Moderate) 11. Extinction and Inattention (visual/tactile/auditory/spatial/personal) - 0(No abnormality) Initials: cc3 Signatures: Dispatcher [employer] NOEMIND Ursula SantacruzJordyn, RN Linda Curran RN RN ss Joaquin, Henry RN Tommie Heller Gregory, MD MD gs Davies, Jonathon, RN RN jd3 Edi Reed RN RN bp Cordel, Charlene cc3 Cony Gil gm RN jd3 Corrections: (The following items were deleted from the chart) 18:27 18:21 Presenting complaint: Patient states: my chest started hurting around 3 hj pm today and my L arm went numb, neck, and cheek, i have difficulty speaking too started an hour ago; denies SOB; reports nausea; 18:21 Presenting complaint: Patient states: my chest started hurting around 3 hj pm today and my L arm went numb, neck, and cheek, i have difficulty speaking too started an hour ago; denies SOB; reports nausea; reports headache 18 18:25 Pulse 94bpm; Resp 18bpm; Pulse Ox 99% RA; Temp 97.8F Temporal; 61.23 kg; hj Height 5 ft. 3 in.; BMI: 23.9; Pain 6/10; hj 23:30 20:45 Reassessment: Patient for transfer to [facility], called for report cc3 but was told that the receiving nurse will call me back, charge nurse Jordyn ibanez. cc3 10/03 07:09 12 18:21 Note called code stroke at 1621, wheeled to CT at 1622; last known bp normal was 3pm;
[2018-10-02] MEDS ORDERED: ACETAMINOPHEN 325 MG TABLET ONE (19:57)
[2018-10-02] MEDS ORDERED: FENTANYL CITR 100 MCG/2 ML ONE (21:13)
[2018-10-02 21:58] LABS: Barbiturates NEGATIVE (NEGATIVE); Benzodiazepines NEGATIVE (NEGATIVE); Cocaine NEGATIVE (NEGATIVE); METHAMPHETAM NEGATIVE (NEGATIVE); Methadone NEGATIVE (NEGATIVE); Opiates NEGATIVE (NEGATIVE); Phencyclidine NEGATIVE (NEGATIVE); THC Cannibis NEGATIVE (NEGATIVE)
--- NOTE | 2018-10-03 06:00 | EKG ---
Test Date: 2018-10-02 Test Time: 19:17:05 Polymerization Supervisor: AG3 MEASUREMENT RESULTS: Intervals: Rate: 85 HI: 168 QRSD: 100 QT: 382 QTc: 454 [place]: P: 67 HI: 168 QRS: 87 T: 22 INTERPRETIVE STATEMENTS: Normal sinus rhythm Normal ECG No previous ECG available for comparison Electronically Signed On 10-03-18 05:59:55 WELDING PRODUCTION SUPERVISOR by Ortiz Mark
== END 2018-10-02 21:39 | disposition short-term general hospital (02) ==
LOC: ER 18:14
DX: I63.9 Cerebral infarction, unspecified (principal); R29.703 NIHSS score 3
CPT/HCPCS: 36415; 70450; 71275; 74175; 80048; 80307; 82962; 84703; 85025; 85610; 92977; 93005; 96374; 99285; J2997; J3010; Q9967